=== PATIENT | female | born 1965 | race Caucasian/White ===

== ENCOUNTER 2021-04-23 11:45 | Emergency (ER) | payer OTHER, SELFPAY ==
[2021-04-23 13:05] VITALS: BP 119/80; PULSE 68; RESP 16; TEMP 36.2; O2SAT 99
--- NOTE | 2021-04-23 13:31 | ED.EYEPROB ---
HPI - Eye Problem General Chief complaint: Eye Problems Stated complaint: eye problems Time Seen by Provider: 04/23/21 13:25 History of Present Illness HPI Narrative: Jennifer Weaver is a 55 yo female with PMH of MS and tobacco use comes to [facility] with complaints of left-sided eye discharge . She had discharge that started last night and has been worse today. She had green discharge upon awakening, is somewhat injected and feels irritated. She wears a single contact in her left eye, which she removed Related Data Home Medications Medication Instructions Recorded Confirmed teriflunomide [Aubagio] 14 mg PO DAILY 04/23/21 04/23/21 Allergies Allergy/AdvReac Type Severity Reaction Status Date / Time No Known Allergies Allergy Verified 04/23/21 12:41 Review of Systems Review of Systems: Narrative: CONSTITUTIONAL: Denies fever, chills, sweats. EYES: Denies visual changes, redness, has left eye discharge. ENT: Denies rhinorrhea, congestion, sore throat, otalgia. CARDIOVASCULAR: Denies chest pain, palpitations, edema. RESPIRATORY: Denies dyspnea, wheezing, cough GASTROINTESTINAL: Denies abdominal pain, nausea, vomiting, diarrhea. GENITOURINARY: Denies dysuria, hematuria, abnormal discharge SKIN: Denies rash or itching. NEUROLOGIC: Denies numbness, or focal weakness. PSYCHIATRIC: Denies anxiety or depression. [facility] Past Medical History Medical History Multiple sclerosis Surgical History Surgical History History of delivery History of cholecystectomy History of tonsillectomy and adenoidectomy Family History Family History Mother Carcinoma of colon Alzheimer disease Sibling Malignant neoplasm of prostate Social History Social History Social History: Years smoked: 1 Smoking status: Current every day smoker Tobacco type: cigarettes Second hand tobacco smoke exposure: Yes Alcohol intake: current Drinks per week: 2 Substance use: never Substance use type: does not use Gender identity (if verbalized by the patient): Female Comments At time of signature, I agree with nursing past medical, surgical, social and family history. There is no relevant family history pertinent to the presenting complaint. Exam Narrative: Exam Narrative: GENERAL: This is a well-nourished, well-developed patient, in mild distress. HEAD: normocephalic, atraumatic. EYES: Sclera clear/white on R, mildly injected on left. Vision is grossly intact. EARS: External ears normal,. Hearing grossly intact. NOSE: External nose normal without nasal discharge, nares without redness, no rhinorrhea. THROAT: Mucous membranes moist, NECK: Neck supple, CARDIOVASCULAR: Regular rate and rhythm without murmurs, gallops, or rubs. RESPIRATORY: Clear to auscultation. Breath sounds equal bilaterally. No wheezes, rales, or rhonchi. GASTROINTESTINAL: Abdomen soft, SKIN: warm, intact with no suspicious lesions or rash, good texture and turgor. NEURO: awake, alert, and oriented to person, place and time. There were no obvious focal neurologic abnormalities. Steady gait EXTREMITIES: Normal range of motion. BACK: Nontender without deformity Course Course Emergency Course: Patient comes with discharge and injection of the left eye that started last night, contact into the eye which she does not currently have on Started on Polytrim eye drops every 4 hours x3 days with warm soaks x3 days-she should not wear contacts or make-up to that eye until irritation has cleared Vital Signs Vital signs: Vital Signs Temperature 97.1 F L 04/23/21 13:05 Pulse Rate 68 04/23/21 13:05 Respiratory Rate 16 04/23/21 13:05 Blood Pressure 119/80 04/23/21 13:05 Pulse Oximetry 99 04/23/21 13:05 Temperat
== END 2021-04-23 13:45 | disposition home or self-care (01) ==
PROVIDERS: Emergency Provider Nurse Practitioner; PCP Family Medicine
DX: H10.32 Unspecified acute conjunctivitis, left eye (principal); F17.210 Nicotine dependence, cigarettes, uncomplicated; G35 Multiple sclerosis
CPT/HCPCS: 99213; G0463

== ENCOUNTER 2022-07-20 14:56 | Emergency (ER) | payer OTHER, SELFPAY ==
--- NOTE | ~2022-07-20 | XR_ITS ---
EXAMINATION: XR chest 2V DATE: 07/20/2022 15:38 INDICATION: 3 days of productive cough TECHNIQUE: PA and lateral views of the chest were obtained. COMPARISON: Chest radiograph dated 10/02/2011 FINDINGS: Small bandlike opacity left costophrenic angle consistent with discoid atelectasis/scarring. No other airspace opacities, pulmonary edema, pleural effusion or pneumothorax. The cardiomediastinal silhoue tte is normal. Cholecystectomy clips in the right upper quadrant. Mild thoracolumbar dextrocurvature with mild spondylosis. IMPRESSION: 1. Mild bandlike discoid atelectasis/scarring at the lateral left lung base. Reviewed, dictated and finalized at location A.
[2022-07-20 15:03] VITALS: BP 136/81; PULSE 75; RESP 16; TEMP 37; O2SAT 98
--- NOTE | 2022-07-20 15:22 | ED.GENADULT ---
HPI - General Adult General Chief complaint: Upper Respiratory Infection Stated complaint: cough Time Seen by Provider: 07/20/22 15:23 Source: patient Mode of arrival: ambulatory Limitations: no limitations History of Present Illness HPI narrative: 57-year-old female patient presents to the [facility] with complaints of cough and cold-like symptoms for the past 4 days. Patient does have history of smoking. Patient states she did take a COVID test on Friday as well as another 1 today and were both negative. Patient states she is vaccinated for flu and COVID and supposed to be getting a COVID booster next week. Patient denies any chest pain or shortness of breath but states she has had a cough that has been bothersome. Denies any fevers that she is aware of. Patient states the congestion has subsided. Patient states that she does have history of walking pneumonia . Related Data Home Medications Medication Instructions Recorded Confirmed teriflunomide 14 mg tablet 14 mg PO DAILY 04/23/21 05/13/22 (Aubagio) Allergies Allergy/AdvReac Type Severity Reaction Status Date / Time No Known Allergies Allergy Verified 07/20/22 15:09 Review of Systems Review of Systems: CONSTITUTIONAL: Denies fever, positive chills, denies sweats. EYES: Denies visual changes, redness, or discharge. ENT: Positive rhinorrhea, denies current congestion, sore throat, or otalgia. CARDIOVASCULAR: Denies chest pain, palpitations, or edema. RESPIRATORY: Positive cough denies dyspnea. GASTROINTESTINAL: Denies abdominal pain, nausea, vomiting, or diarrhea. GENITOURINARY: Denies dysuria or hematuria. SKIN: Denies rash or itching. MUSCULOSKELETAL: Denies back pain, joint pain, or myalgia. NEUROLOGIC: Denies headache, numbness, or weakness. PSYCHIATRIC: Denies anxiety or depression. [facility] Past Medical History Medical History Bilateral tinnitus Multiple sclerosis Surgical History Surgical History History of delivery History of cholecystectomy History of tonsillectomy and adenoidectomy Family History Family History Mother Carcinoma of colon Alzheimer disease Sibling Malignant neoplasm of prostate Social History Social History Social History: Years smoked: 1 Smoking status: Current every day smoker Tobacco type: cigarettes Second hand tobacco smoke exposure: Yes Smoking end date: 11/26/21 Alcohol intake: current Drinks per week: 2 Substance use: never Substance use type: does not use Additional living arrangements comments: boyfriend Gender identity (if verbalized by the patient): Female Sexual Orientation (if Verbalized by the Patient): Straight or Heterosexual Comments At the time of my signature I agree with nursing past medical history, surgical, social, and family history. There is no relevant family history pertinent to the presenting complaint. Exam Narrative: GENERAL: Well-appearing, well-nourished, and in no acute distress. HEAD: Normocephalic, atraumatic. EYES: PERRLA and EOMI. ENT: Nares with erythema and edema noted bilaterally, no rhinorrhea or epistaxis. Mucous membranes moist. Posterior pharynx with no erythema, tonsillar lodgment, exudates or lesions present. Bilateral TMs are clear with no erythema or foreign bodies to the canal. NECK: Supple. No lymphadenopathy CHEST: Clear to auscultation. No respiratory distress. Patient does have a mild cough present during exam. HEART: Regular rate and rhythm. No murmur heard. Normal peripheral pulses. ABDOMEN: Soft, nontender, nondistended, normal active bowel sounds. EXTREMITIES: Normal range of motion. No edema. SKIN: Warm, dry, no rash. NEURO: No focal deficits. Alert and oriented x3. Course Course Level
== END 2022-07-20 16:18 | disposition home or self-care (01) ==
PROVIDERS: Emergency Provider Nurse Practitioner Family; PCP Family Medicine
DX: J20.8 Acute bronchitis due to other specified organisms (principal); G35 Multiple sclerosis; F17.210 Nicotine dependence, cigarettes, uncomplicated
CPT/HCPCS: 71046; 99213; G0463

== ENCOUNTER 2022-09-13 00:25 | Day surgery (SDC) | payer OTHER, SELFPAY ==
[2022-09-02 09:51] VITALS: BMI 24.7
--- NOTE | 2022-09-02 09:52 | PC.NURSE ---
Report to the Outpatient Waiting Room, entrance under the green pavilion located off [facility], at time _0800_ on date _[id number]_. Planned Procedure Time: _1000_. Time changes happen often and if your time is changed the preop area will call you the afternoon before. - You and your visitor will be asked to self-screen and do not enter if you have any COVID symptoms. - Only one visitor is requested with a max of two and NO children visitors are allowed at this time. - The patient visitor may be requested to leave or wait in car when not with patient due to distancing restrictions. - A mask is optional within the hospital. Patients may have clear liquids (water, carbonated beverages, clear teas, apple juice) until 3 hours prior to surgery with a maximum of 20 ounces. - No food from midnight until time of surgery Take the following medications with a SIP of water the morning of surgery: ____Aubagio Medications to discontinue per physician Vitamins Date to take last fobk__[id number] Please no make-up, nail portuguese, hairspray, perfume, deodorant, or body powder the day of surgery. No jewelry (including any body piercings) or valuables the day of surgery, leave them at home. Please take a shower or bath the night before, or the morning of, surgery with an antibacterial soap. Wear comfortable, loose fitting clothing. - Jewelry must be removed prior to entering the operating room. Rings and piercings that are not removed may be cut off. - The hospital will not accept responsibility for valuables. - Please leave all valuables, including medications, at home the day of surgery. If you are going home after surgery, a licensed mechanic driver must drive you home. - NO public transportation without another adult if you receive anesthesia. - We recommend that an adult stay with you for 24 hours following discharge. - We also recommend that you do not drive, make important decision, drink alcoholic beverages, or take any drugs that were not prescribed by your health care provider for at least 24 hours after your discharge time. Follow any additional instructions given to you from your surgeon. If you or anyone in your household have experienced Covid symptoms in the past week, please notify your surgeon or the nurse liaison at the phone number below for possible testing. Telephone instructions given to _Patient___and asked if any additional questions and then verbalized understanding. Patient advised to call surgeon office or pre surgery nurse liaison [phone] if any additional questions.
--- NOTE | 2022-09-12 14:41 | WPDANESEPPF ---
Anes - Initial Pre Proc Eval Procedure: Operation Date: 09/13/22 10:00 Proposed Procedures p Craig Bunionectomy Right Foot with Hardware Placement, Emory Osteotomy with Hardware Placement, - Tomás Lea DPM s Arthroplasty Second Digit Right Foot with K-Wire - Tomás Lea DPM Date/Time: 09/12/22 14:41 Surgeon: Tomás Lea DPM Pre Op Diagnosis: hallux valgus, hammer toe right foot Patient Data Age: 57 Gender: F Height: 1.68 m Weight: 69.5 kg Allergies Allergy/AdvReac Type Severity Reaction Status Date / Time No Known Allergies Allergy Verified 09/13/22 08:10 Home Medications Medication Instructions Recorded Confirmed Type teriflunomide 14 mg tablet 14 mg PO DAILY 04/23/21 09/13/22 History (Aubagio) cetirizine 10 mg tablet (Zyrtec) 10 mg PO DAILY #30 tabs 07/20/22 09/13/22 Rx cholecalciferol (vitamin D3) 125 125 mcg PO DAILY 09/02/22 09/13/22 History mcg (5,000 unit) tablet (Vitamin D3) multivitamin 1 tablet PO DAILY 09/02/22 09/13/22 History Patient hx anesthesia problems: none Family hx anesthesia problems: none Results Review: All pre-operative results and documents have been reviewed as part of the pre-operative evaluation. [facility] Past Medical History Medical History Bilateral tinnitus Multiple sclerosis Screening mammogram, encounter for Smoker Surgical History Surgical History History of delivery History of cholecystectomy History of tonsillectomy and adenoidectomy Family History Family History Mother Carcinoma of colon Alzheimer disease Sibling Malignant neoplasm of prostate Social History Social History Social History: Years smoked: 2 Smoking status: Current every day smoker Tobacco type: cigarettes Second hand tobacco smoke exposure: Yes Smoking end date: 11/26/21 Alcohol intake: current Drinks per week: 2 Substance use: never Substance use type: does not use Living arrangements: with family Additional living arrangements comments: boyfriend Gender identity (if verbalized by the patient): Female Sexual Orientation (if Verbalized by the Patient): Straight or Heterosexual Spiritual care concerns: No Anes - Eval Final PreProcedure Day of Procedure 09/12/22 14:41 Patient weight: obese Heart: regular rate and rhythm Lungs: clear to auscultation and normal air movement Airway: Mallampati scale class II Neurological: alert and oriented Last oral intake: >/= 8 hours ASA classification: III Emergent: no Anesthetic plan: proceed Anesthesia type and monitoring: general GIVS and LMA Results Review: All pre-operative results and documents have been reviewed as part of the pre-operative evaluation. Informed Consent: The patient's anesthetic plan and its attendant risks and benefits were discussed with the patient/family/POA. Questions were solicited and answers provided to the satisfaction of the patient/family/POA.
--- NOTE | 2022-09-12 14:42 | WPDANESPNB ---
Anes - Peripheral Nerve Block Date/Time: 09/12/22 14:42 I have discussed with the patient/family/POA the placement of a peripheral nerve block for post-operative pain management, including associated risks, benefits, complications, and side effects. Alternative methods of post-operative analgesia were detailed. Questions were solicited and answers provided to the satisfaction of the patient/family/POA. Time-Out: A pre-procedural Time-Out was completed immediately before starting the procedure and confirmed: Patient Identification, Site, Procedure, Patient Position and the Availability of Requisite Equipment. Clinical Indications: Acute post-operative pain management requested by the operative surgeon. Nerve Block Insertion Note Needle: 22 gauge, stimulating, insulated echogenic needle.
[2022-09-13] VITALS (9 sets, daily range): BP systolic 117–135; BP diastolic 73–84; PULSE 69–88; RESP 10–18; TEMP 36.5–36.6; O2SAT 96–100
[2022-09-13] MEDS: LACTATED RINGERS 1,000 ML 30 ML IV CONT (08:26)
--- NOTE | 2022-09-13 09:48 | WPDHPUPDATE1 ---
History and Physical Update Update Date/Time: 09/13/22 09:48 History and Physical has been reviewed, including an updated exam of the patient. There are NO changes in the patient's condition. Risks, benefits, and alternatives have been discussed and questions answered. Patient agrees to proceed with procedure.
[2022-09-13] MEDS: ceFAZolin 2 GM/D5W 50 ML 2 GM/50 ML BAG IVPB (09:58)
[2022-09-13] MEDS: BUPIVACAINE HCL 0.5% PF 30 ML VIAL INFILTRATE (10:23)
[2022-09-13] MEDS: BACITRACIN ZINC OINTMENT 0.9 GRAM PACKET 1 PACKET TOPICAL (11:02)
--- NOTE | 2022-09-13 11:08 | PM.OP ---
Procedure Note - Brief Procedure Note - Brief Date of procedure: 09/13/22 Pre-op diagnosis: hallux valgus, hammer toe right foot HAV right Hammertoe 2 right Procedure performed: Craig bunionectomy with screw fixation right Arthroplasty with k-wire 2nd right Description of procedure: Under monitored sedation patient was brought into the operating room and placed on the operating table in a supine position. Following general anesthesia the foot was then scrubbed, prepped, and draped in the usual aseptic manner. An Esmark bandage was used to exsanguinate the patient?s right foot and the ankle tourniquet was inflated. Attention was then directed to the dorsal aspect of the 1 st metatarsophalangeal joint where linear incision was made medial to the extensor tendon. It was deepened down to the level of the bone using sharp and blunt dissection with care being taken to identify and retract all vital and neurovascular structures. A linear capsulotomy was made and the head of the metatarsal was exposed to the operative field. The medial eminence was resected. The first interspace was accessed and the adductor hallucis tendon was transected. The fibular sesamoid was freed of all of its soft tissue attachments. A v-type osteotomy was made. The head was moved laterally and fixated in place with 1 3.0 Asnis screw. At this point the toe was noted to be straight and the decision was made to not perform the Emory procedure. All remaining bone eminences were removed with a bone saw and all rough edges were smoothed. The wound was flushed with copious amounts of sterile normal saline and the deep tissue was repaired using 3-0 vicryl, skin was repaired using 5-0 vicryl. Next a linear incision made dorsal to the PIPJ of the 2nd digit. It was deepened down to the level of the PIPJ. Using sharp and blunt dissection a transverse tenotomy was performed at the joint. The joint was reduced into proper position. The joint was then fixated in place using 1, .045 inch K-wire. The wounds were then injected with 0.5% marcaine plain The wounds were then covered with a dry, sterile compressive dressing consisting of Steristrips, antibiotic ointment, Adaptic, 4 x 4?s, Newton and Cobelyse. The ankle tourniquet was deflated and prompt capillary refill response noted to all digits of the right foot. Patient tolerated procedure and anesthesia well. He was transferred to the recovery room with vital signs stable and neurovascular status intact to all digits of the right foot. Following a period of post-operative monitoring the patient will be discharged home with written and oral post-operative instructions.. Implants: 3.0 Shai Asnis screw 0.045 K-wire Surgeon: Tomás Lea DPM Procurement Accountant: none Estimated blood loss (mL): 1 Packing: No Pathology: None sent Complications: No immediate complications Disposition: PACU
== END 2022-09-13 13:38 | disposition home or self-care (01) ==
PROVIDERS: PCP Family Medicine; Visit Provider Podiatrist Foot & Ankle Surgery
PROC: (CPT 28299; principal; 2022-09-13 10:00)
PROC: (CPT 28285; 2022-09-13 10:00)
DX: M20.11 Hallux valgus (acquired), right foot (principal); M20.41 Other hammer toe(s) (acquired), right foot; G35 Multiple sclerosis; F17.210 Nicotine dependence, cigarettes, uncomplicated
CPT/HCPCS: 28285; 28298; A9270; C1713; J0690; J1100; J1885; J2250; J2405; J2704; J3010; J7120

== ENCOUNTER 2024-11-15 01:07 | Day surgery (SDC) | payer OTHER, SELFPAY ==
[2024-10-29 08:35] VITALS: BMI 24.9
--- OUTSIDE RECORDS SUMMARY | 2024-11-15 01:10 | XMS_ITS | Referral Summary ---
Author Organization [facility] Address [address] [place] [address] Care Team Providers Care Front End Developer Name Role Phone Mark Alcantara MD Primary Care Provider [phone] Source Comments [facility], formerly [facility],non-owned Affiliates and Associated Physician Practices is amultiple site organization consisting of ambulatory clinics and hospital sitesin [place], [place], [place] and [place]. This disclosure is being madepursuant to the Care Everywhere program and may not contain all information available regarding this patient. Last updated 18.[facility] Allergies No known active allergies Medications * Be aware that medications may not be up to date on this document. Alwaysverify current medications with the patient. Medication Sig Dispensed Refills Start Date End Date Status vitamin D3 (CHOLECACIFEROL) 5000 UNITS Active Cyanocobalamin (VITAMIN B-12 PO) Take 1 tablet by mouth once daily Active sertraline (Zoloft) 25 MG tablet Take 1 (one) tablet by mouth once daily 06/04/2022 Active Teriflunomide 14 MGIndications:MS (multiple sclerosis) (HCC) Take 1 (one) tablet by mouth once daily 30 tablet 11 02/13/2024 Active Active Problems Problem Noted Date Diagnosed Date Vitamin D deficiency 12/29/2013 Glaucoma suspect 11/18/2013 Numbness and tingling of left leg 05/05/2013 MS (multiple sclerosis) 07/01/2010 Immunizations Name Administration Dates Next Due INFLUENZA VACCINE 07/05/2019,07/07/2018 Social History Tobacco Use Types Packs/Day Years Used Date Smoking Tobacco: Never Smokeless Tobacco: Never Tobacco Cessation:Counseling Given: Not Answered Alcohol Use Standard Drinks/Week Comments Yes 0 (1 standard drink = 0.6 oz pur e alcohol) socially Sex and Gender Information Value Date Recorded Sex Assigned at Not on file Gender Identity Not on file Sexual Orientation Not on file Last Filed Vital Signs Vital Sign Reading Time Taken Comments Blood Pressure 126/85 09/04/2023 2:47 PM [employer] Pulse 84 09/04/2023 2:47 PM [employer] Temperature 36.6 C (97.8 F) 09/04/2023 2:47 PM [employer]OM[employer]ENT Respiratory Rate 16 11/04/2016 2:55 PM [employer]OM[employer]ENT Oxygen Saturation 96% 09/04/2023 2:47 PM [employer]OM[employer]ENT[employer]ENT Inhaled Oxygen Concentration - - Weight 67.1 kg (148 lb) 09/04/2023 2:47 PM [employer]ENT[employer] Height 167.6 cm (5' 6 ) 09/04/2023 2:47 PM [employer]OMO[employer]LE [employer]ENTAL [employer]ENT Body Mass Index 23.89 09/04/2023 2:47 PM [employer]OM[employer] Plan of Treatment Not on file Procedures Procedure Name Priority Date/Time Associated Diagnosis Comments HEPATITIS C ANTIBODY Routine 06/30/2013 10:24 AM CDT from Last 3 Months or Most Recently Relevant to Health Maintenance Results * HEPATITIS C ANTIBODY (06/30/2013 10:24 AM CDT) Hepatitis C Antibody NON-REACTI VE NON-REACT [facility]) Signal/Cutoff 0.03 <1.00 [facility]) Comment: Test Performed at: [employer] [facility] [address] [place] [address] LINDSEY DRAKE DO,MPH 06/30/2013 10:2 4 AM CDT 06/30/2013 10:25 AM CDT Historical Provider LAB - CHEMISTRY O RDERABLES [facility]) from Last 3 Months or Most Recently Relevant to Health Maintenance Care Teams Front End Developer Relationship Specialty Start Date End Date Mark Alcantara MD [address] [place], [place] [id number] PCP - General 11/19/21
--- OUTSIDE RECORDS SUMMARY | 2024-11-15 01:10 | XMS_ITS | Patient Health Record ---
Author Organization [facility] Address [address] [place], [place] [id number] Care Team Providers Care Shim Plug Cutter Name Role Phone PITA FLORES Unavailable [phone] Mark Alcantara Unavailable Unavailable Reason For Referral No Information Plan Of Treatment No Information Insurance Providers Payer Name Payer Address Payer Phone Subscriber Number Group Number Insured Name Patient Relationship to Insured Coverage Start Date Coverage End Date [employer] PPO [address] [place], [place] [id number] I [place] SAN[place] Self - patient is the insured
--- OUTSIDE RECORDS SUMMARY | 2024-11-15 01:10 | XMS_ITS | Clinical Summary ---
Author Organization [facility] Address [address] [place] [address] Care Team Providers Care Collections Director Name Role Phone Mark Alcantara MD Primary Care Provider Allergies No known active allergies Medications cholecalciferol (VITAMIN D-3) 5,000 unit tablet Take 1 tablet (5,000 Units total) by mouth daily Active TESTOSTERONE, BULK, MISC Active progesterone (PROMETRIUM) 200 mg capsule Take 300 mg by mouth daily Active gabapentin (NEURONTIN) 300 mg capsuleIndicati ons:Sciatica Take one tablet as needed for left lower extremity tingling 30 capsule 2 4 Active teriflunomide 14 mg tablet Take 1 tablet (14 mg total) by mouth daily 90 tablet 3 4 Active Active Problems Problem Noted Date Diagnosed Date Multiple sclerosis 06/09/2024 Assessment & Plan (06/09/2024 8:14 PM CDT): Patient is presenting to [facility] for her multiple sclerosis. She had initial symptom onset in 1998 and was diagnosed during this time following MR imaging and CSF testing. Shortly thereafter she was started on Avonex and then switched to Betaseron, Gilenya, Aubagio, and within the last year generic Teriflunomide. She denies any ongoing symptoms attributable to her multiple sclerosis. Her most recent brain MRI from 2020 showed no evidence of radiographic disease activity. She continues to take vitamin-D 5000 units daily supplement. Recommend continuing Aubagio. We will repeat her brain MRI for further monitoring for ongoing disease activity. We will check blood work to monitor for side effects from Aubagio. Sciatica of left side 06/09/2024 Assessment & Plan (06/09/2024 11:47 AM CDT): Patient with ongoing symptoms of sciatica in her left lower extremity that started in the context of weight lifting. It has been present for roughly 4 weeks and she describes it as an intermittent tingling sensation extending from her left buttocks down to her left foot and calf. It improves with activity. We will provide the patient with a prescription for physical therapy for further treatment. We will also prescribe the patient with a prescription for gabapentin 300 mg to take as needed to help with the tingling sensation. Meningioma 06/09/2024 Assessment & Plan (06/09/2024 11:48 AM CDT): Patient with left frontal meningioma identified incidentally on her brain MR imaging. The meningioma has been stable over time and is unlikely contributing to ongoing symptoms. She also has an incidentally identified osseous bone lesion in her occipital bone. This has also remained largely stable over time. Follow up with a brain MRI for further evaluation. Surgical History Surgery Date Site/Laterality Comments SECTION 1988, 1992 CHOLECYSTECTOMY 2004 Medical History Medical History Date Comments Autoimmune disease (CMS/HCC) ([facility]) December 1998 Multiple sclerosis (HCC) 06/09/2024 Sciatica of left side 06/09/2024 Meningioma (HCC) 06/09/2024 Family History Medical History Relation Name Comments Cancer Brother Pérez Solano Miscarriages / Stillbirths Daughter Janice Ortiz Alzheimer's disease Mother Cristal Moreno Cancer Mother Cristal Moreno Relation Name Status Comments Brother Pérez Solano Daughter Janice Ortiz Mother Cristal Moreno Social History Tobacco Use Types Packs/Day Years Used Date Smoking Tobacco: Former Cigarettes 0.3 3 0 12/27/2019 - 01/22/2023 Tobacco Cessation:Counseling Given: Not Answered Comments No Sex and Gender Information Value Date Recorded Sex Assigned at Not on file Legal 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 Gender Identity Not on file Sexual Orientation Not on file Obstetrics History Last Filed Vital Signs Vital Sign Reading Time Taken Comments Blood Pressure 108/76 06/09/2024 10:43 AM CDT Pulse 75 06/09/2024 10:43 AM CDT Temperature 36.2 C (97.2 F) 06/09/2024 10:43 AM CDT Respiratory Rate - - Oxygen Saturation 95% 06/09/2024 10:43 AM CDT Inhaled Oxygen Concentration - - Weight 72.2 kg (159 lb 3.2 oz) 06/09/2024 10:43 AM CDT Height 167.6 cm (5' 6 ) 06/09/2024 10:43 AM CDT Body Mass Index 25.7 06/09/2024 10:43 AM CDT Plan of Treatment Health Maintenance Due Date Last Done Comments Breast Cancer Screening-Mammogram 1963 Cervical Cancer Screening 1963 Colon Cancer Screening-Colonoscopy 1963 Depression Screening 1963 Hepatitis C Screening 1963 DTaP/Tdap/Td Vaccine (1 - Tdap) 1974 Hepatitis B Screening 1981 Regular Well Visit/Exam 18-64 1981 Covid-19 Vaccine ( season) 2024 01/01/2021, 12/11/2020 Influenza Vaccine (#1) 2024 , 06/03/2020, 07/15/2019, Additional history exists Pneumococcal vaccine <65 Aged Out 07/13/2013 No longer eligible based on patient's age to complete this topic Zoster Vaccine Completed 06/28/2021, 10/05/2020 [place] [address] [facility] [id number] [employer] [place] [id number] [employer] Care Teams Collections Director Relationship Specialty Start Date End Date Mark Alcantara MD [address] [facility] [address] [place] [address] PCP - General Family Medicine 02/14/22
--- OUTSIDE RECORDS SUMMARY | 2024-11-15 01:10 | XMS_ITS | Patient Health Summary ---
Author Organization [facility] Address [address] [place] [address] Care Team Providers Care Delivery Person Name Role Phone Mark Alcantara MD Primary Care Provider [phone] Note from [facility],non-owned Affiliates and Associated Physician Practices is amultiple site organization consisting of ambulatory clinics and hospital sitesin [place], [place], [place] and [place]. This disclosure is being madepursuant to the Care Everywhere program and may not contain all information available regarding this patient. Last updated 18.[facility] Allergies No known active allergies Medications * Be aware that medications may not be up to date on this document. Alwaysverify current medications with the patient. * vitamin D3 (CHOLECACIFEROL) 5000 UNITS * Cyanocobalamin (VITAMIN B-12 PO) Take 1 tablet by mouth once daily * sertraline (Zoloft) 25 MG tablet(Started 06/04/2022) Take 1 (one) tablet by mouth once daily * Teriflunomide 14 MG(Started 02/13/2024) Take 1 (one) tablet by mouth once daily 11 refills by 02/12/2025 Active Problems Problem Noted Date Diagnosed Date Vitamin D deficiency 12/29/2013 Glaucoma suspect 11/18/2013 Numbness and tingling of left leg 05/05/2013 MS (multiple sclerosis) 07/01/2010 Immunizations * INFLUENZA VACCINE(Given 07/05/2019, 07/07/2018) Social History Tobacco Use Types Packs/Day Years [...] Comments Blood Pressure 126/85 09/04/2023 2:47 PM ROLLER PAINTER Pulse 84 09/04/2023 2:47 PM ROLLER PAINTER Temperature 36.6 C (97.8 F) 09/04/2023 2:47 PM ROLLER PAINTER Respiratory Rate 16 11/04/2016 2:55 PM ROLLER PAINTER Oxygen Saturation 96% 09/04/2023 2:47 PM ROLLER PAINTER Inhaled Oxygen Concentration - - Weight 67.1 kg (148 lb) 09/04/2023 2:47 PM ROLLER PAINTER Height 167.6 cm (5' 6 ) 09/04/2023 2:47 PM ROLLER PAINTER Body Mass Index 23.89 09/04/2023 2:47 PM ROLLER PAINTER Procedures * CBC W AUTO DIFFERENTIAL(Performed 11/22/2023) * COMPREHENSIVE METABOLIC PANEL(Performed 11/22/2023) * CBC W AUTO DIFFERENTIAL(Performed 02/22/2022) * COMPREHENSIVE METABOLIC PANEL(Performed 02/22/2022) * CBC W AUTO DIFFERENTIAL(Performed 01/13/2021) * COMPREHENSIVE METABOLIC PANEL(Performed 01/13/2021) * MRI CERVICAL SPINE WWO CONT(Performed 12/09/2020) Performed for Multiple sclerosis (HCC) * MRI BRAIN WWO CONTRAST(Performed 12/09/2020) Performed for Multiple sclerosis (HCC) * CREATININE - POCT INTERFACED(Performed 12/09/2020) * LAB RESULTS ORDER(Performed 06/06/2020) * CBC W AUTO DIFFERENTIAL(Performed 06/03/2020) * VITAMIN D 25-HYDROXY(Performed 07/17/2019) * TSH(Performed 07/17/2019) * CBC W AUTO DIFFERENTIAL(Performed 07/17/2019) * COMPREHENSIVE METABOLIC PANEL(Performed 07/17/2019) * LAB RESULTS ORDER(Performed 04/12/2019) * VITAMIN D 25-HYDROXY(Performed 04/09/2019) * TSH(Performed 04/09/2019) * CBC W AUTO DIFFERENTIAL(Performed 04/09/2019) * COMPREHENSIVE METABOLIC PANEL(Performed 01/15/2019) Performed for MS (multiple sclerosis) (HCC) * CBC W AUTO DIFFERENTIAL(Performed 01/15/2019) Performed for MS (multiple sclerosis) (HCC) * LAB RESULTS ORDER(Performed 10/23/2018) * COMPREHENSIVE METABOLIC PANEL(Performed 10/16/2018) Performed for MS (multiple sclerosis) (HCC) * CBC W AUTO DIFFERENTIAL(Performed 10/16/2018) Performed for MS (multiple sclerosis) (HCC) * MRI CERVICAL SPINE WWO CONT(Performed 09/26/2018) Performed for MS (multiple sclerosis) (HCC) * MRI THORACIC SPINE WWO CONT(Performed 09/26/2018) Performed for MS (multiple sclerosis) (HCC) * MRI BRAIN WWO CONTRAST(Performed 09/26/2018) Performed for MS (multiple sclerosis) (HCC) * CREATININE BLOOD - POCT (IP) [facility](Performed 09/26/2018) Performed for MS (multiple sclerosis) (HCC) * LAB RESULTS ORDER(Performed 07/20/2018) * COMPREHENSIVE METABOLIC PANEL(Performed 07/17/2018) Performed for MS (multiple sclerosis) (HCC) * CBC W AUTO DIFFERENTIAL(Performed 07/17/2018) Performed for MS (multiple sclerosis) (HCC) * LAB RESULTS ORDER(Performed 02/10/2018) * LAB RESULTS ORDER(Performed 02/06/2018) * LAB RESULTS ORDER(Performed 02/04/2018) * TSH(Performed 10/17/2017) * COMPREHENSIVE METABOLIC PANEL(Performed 10/17/2017) * CBC W AUTO DIFFERENTIAL(Performed 10/17/2017) * HEPATIC FUNCTION PANEL(Performed 06/27/2017) * CBC W AUTO DIFFERENTIAL(Performed 06/27/2017) * CBC W AUTO DIFFERENTIAL(Performed 03/27/2017) * HEPATIC FUNCTION PANEL(Performed 03/27/2017) * VITAMIN D 25-HYDROXY(Performed 03/27/2017) * CBC W AUTO DIFFERENTIAL(Performed 12/02/2016) * HEPATIC FUNCTION PANEL(Performed 12/02/2016) * MRI BRAIN WWO CONTRAST(Performed 08/16/2016) * MRI CERVICAL SPINE WWO CONT(Performed 08/16/2016) * MRI THORACIC SPINE WWO CONT(Performed 08/16/2016) * BASIC METABOLIC PANEL (CALCIUM TOTAL)(Performed 08/02/2016) * CBC W AUTO DIFFERENTIAL(Performed 08/02/2016) * HEPATIC FUNCTION PANEL(Performed 08/02/2016) * COMPREHENSIVE METABOLIC PANEL(Performed 04/26/2016) * TSH(Performed 04/26/2016) * CBC W AUTO DIFFERENTIAL(Performed 04/26/2016) * COMPREHENSIVE METABOLIC PANEL(Performed 03/01/2016) * CBC W AUTO DIFFERENTIAL(Performed 03/01/2016) * CBC W AUTO DIFFERENTIAL(Performed 03/01/2016) * COMPREHENSIVE METABOLIC PANEL(Performed 02/03/2016) * CBC W AUTO DIFFERENTIAL(Performed 02/03/2016) * CBC W AUTO DIFFERENTIAL(Performed 02/03/2016) * QUANTIFERON TB-GOLD (CLIENT INCUBATED)(Performed 12/28/2015) * VITAMIN D 25-HYDROXY(Performed 12/28/2015) * COMPREHENSIVE METABOLIC PANEL(Performed 12/28/2015) * CBC W AUTO DIFFERENTIAL(Performed 12/28/2015) * CBC W AUTO DIFFERENTIAL(Performed 12/28/2015) * HEPATIC FUNCTION PANEL(Performed 11/17/2015) * CBC W AUTO DIFFERENTIAL(Performed 11/17/2015) * VITAMIN D 25-HYDROXY(Performed 05/10/2015) * FOLATE(Performed 05/10/2015) * VITAMIN B12(Performed 05/10/2015) * COMPREHENSIVE METABOLIC PANEL(Performed 05/10/2015) * CBC W AUTO DIFFERENTIAL(Performed 05/10/2015) * CBC W AUTO DIFFERENTIAL(Performed 05/10/2015) * MRI BRAIN WWO CONTRAST(Performed 11/02/2014) * CREATININE BLOOD - POCT (IP) [facility](Performed 11/02/2014) * VITAMIN D 25-HYDROXY D2+D3(Performed 05/18/2014) * CBC W AUTO DIFFERENTIAL(Performed 05/18/2014) * TSH(Performed 05/18/2014) * T4 FREE(Performed 05/18/2014) * PT-INR [facility](Performed 05/18/2014) * PTT [facility](Performed 05/18/2014) * COMPREHENSIVE METABOLIC PANEL(Performed 05/18/2014) * URINALYSIS W/MICROSCOPIC NO CULTURE(Performed 05/18/2014) * MRI BRAIN WWO CONTRAST(Performed 05/04/2014) * VITAMIN D 25-HYDROXY D2+D3(Performed 03/15/2014) * VITAMIN D 25-HYDROXY(Performed 11/24/2013) * MRI BRAIN WWO CONTRAST(Performed 11/16/2013) * CREATININE BLOOD - POCT (IP) [facility](Performed 11/16/2013) * QUANTIFERON TB-GOLD(Performed 08/11/2013) * QUANTIFERON TB-GOLD(Performed 07/07/2013) * INTERFERON BETA NEUTRALIZING ANTIBODY(Performed 06/30/2013) * VITAMIN B12(Performed 06/30/2013) * TSH(Performed 06/30/2013) * FOLATE(Performed 06/30/2013) * CBC W AUTO DIFFERENTIAL(Performed 06/30/2013) * COMPREHENSIVE METABOLIC PANEL(Performed 06/30/2013) * HEPATITIS C ANTIBODY(Performed 06/30/2013) * VARICELLA ZOSTER ANTIBODY IGG(Performed 06/30/2013) * TOMI SCREEN IFA+LUPUS PANEL(Performed 06/30/2013) * VITAMIN D 25-HYDROXY D2+D3(Performed 06/30/2013) * STRATIFY JCV AB RFLX TO INHIBITION ASSAY(Performed 06/30/2013) * NEUROMYELITIS OPTICA ANTIBODY(Performed 06/30/2013) * RPR W REFLEX CONFIRM(Performed 06/30/2013) Results * CBC WITH DIFFERENTIAL (11/22/2023 9:28 AM ROLLER PAINTER) Only the most recent of26 resultswithin the time period is included. White Blood Cell Count 5.0 3.8 - 10.8 Thousand/u L [facility] RBC 4.22 3.80 - 5.10 Million/uL [facility] Hemoglobin 13.5 11.7 - 15.5 g/dL [facility] Hematocrit 39.8 35.0 - 45.0 % [facility] MCV 94.3 80.0 - 100.0 fL [facility] MCH 32.0 27.0 - 33.0 pg [facility] MCHC 33.9 32.0 - 36.0 g/dL [facility] RDW 12.6 11.0 - 15.0 % [facility] Platelet Count 252 140 - 400 Thousand/u L [facility] MPV 10.7 7.5 - 12.5 fL [facility] Neutrophil Absolute 2985 1500 - 7800 cells/uL [facility] Lymphocytes Absolute 1400 850 - 3900 cells/uL [facility] Absolute Monocytes 395 200 - 950 cells/uL [facility] Eosinophils Absolute 120 15 - 500 cells/uL [facility] Basophils Absolute 100 0 - 200 cells/uL [facility] Granulocytes % 59.7 % [facility] Lymphocytes % 28.0 % [facility] Monocytes % 7.9 % [facility] Eosinophils % 2.4 % [facility] Basophils % 2.0 % [facility] Comment: REPORT COMMENT: FASTING:NO Test Performed at: [facility] [place] [address] ZOILA ROBERTS MD 11/22/2023 9:28 AM ROLLER PAINTER 11/22/2023 9:30 AM ROLLER PAINTER Naheed Webb MD LAB - HEMATOLOG Y ORDERABLES [facility] [address] [place] [address] * COMPREHENSIVE METABOLIC PANEL (11/22/2023 9:28 AM ROLLER PAINTER) Only the most recent of15 resultswithin the time period is included. Glucose 87 65 - 139 mg/dL [facility] Comment: Non-fasting reference interval BUN 11 7 - 25 mg/dL [facility] Creatinine 0.95 0.50 - 1.05 mg/dL [facility] eGFR by Cystatin C 69 > OR = 60 mL/min/1. 73m2 [facility] BUN/Creatinine Ratio SEE NOTE: 6 - 22 (calc) [facility] Comment: Not Reported: BUN and Creatinine are within reference range. Sodium 141 135 - 146 mmol/L [facility] Potassium 4.1 3.5 - 5.3 mmol/L [facility] Chloride 108 98 - 110 mmol/L [facility] CO2 25 20 - 32 mmol/L [facility] Calcium 9.7 8.6 - 10.4 mg/dL [facility] Protein Total 6.2 6.1 - 8.1 g/dL [facility] Albumin 4.3 3.6 - 5.1 g/dL [facility] Globulin Total 1.9 1.9 - 3.7 g/dL (calc) [facility] Albumin/Globulin Ratio 2.3 1.0 - 2.5 (calc) [facility] Bilirubin Total 0.5 0.2 - 1.2 mg/dL [facility] Alkaline Phosphatase 64 37 - 153 U/L [facility] AST 21 10 - 35 U/L [facility] ALT 23 6 - 29 U/L [facility] Comment: Test Performed at: [facility] [place] [address] ZOILA ROBERTS MD 11/22/2023 9:28 AM ROLLER PAINTER 11/22/2023 9:30 AM ROLLER PAINTER Naheed Webb MD LAB - CHEMISTRY ORDERABLES [facility] [address] [place] [address] * MRI CERVICAL SPINE WWO CONT (12/09/2020 2:58 PM ROLLER PAINTER) Only the most recent of3 resultswithin the time period is included. Anatomical Region Laterality Modality Spine Magnetic Resonan ce 12/11/2020 8:12 AM CDT Impressions 12/11/2020 11:41 AM CDT IMPRESSION: 1. No significant interval changes in size or morphology of the supratentorial and cord demyelinating plaques are identified. A new demyelinating plaque is not evident. No evidence of corresponding enhancement or restricted diffusion to suggest active disease. There has been no interval brain atrophy. The optic nerve and optic chiasm are normal. 2. Stable 5 mm dural-based right frontal meningioma. 3. A 1.6 x 0.9 cm occipital osseous lesion in midline is slightly larger than the prior study. Further evaluation using a CT head for better evaluation of bony structures is recommended. 4. The degenerative disc and joint disease has progressed since 09/26/2018 with effacement of ventral subarachnoid space at the C3-C4 through the C6-C7 levels mainly by the posterior disc-osteophyte complexes. However, there is no cord compression or spinal stenosis as a result. I, Dr. ABDULLAHI BAUGH have personally reviewed and interpreted this examination/study. This report was electronically signed by ABDULLAHI BAUGH on 12/11/2020 11:41 AM . Narrative 12/11/2020 11:41 AM CDT EXAMINATIONS: 1. MRI BRAIN WITHOUT AND WITH CONTRAST 2. MRI CERVICAL SPINE WITHOUT AND WITH CONTRAST HISTORY: G35: 55-year-old female presenting for multiple sclerosis follow-up. TECHNIQUE: MRI of the brain and cervical spine was performed prior to and following the uneventful administration of 7.5 mL Gadavist contrast according to a demyelination protocol of the brain and a standard protocol of the cervical spine. COMPARISON: MRI brain and cervical spine 09/26/2018. FINDINGS: BRAIN: No significant interval change is evident regarding the size, shape and number of the multiple small periventricular and subcortical T2/FLAIR hyperintense white matter lesions. No corresponding enhancement or restricted diffusion to suggest active disease is identified. There are stable number of the lesions demonstrating T1 hypointensity, consistent with myelin vacuolization. There is a stable 5 mm dural based right frontal lobe avidly enhancing meningioma (series 16 image 114). No other enhancing lesion is identified. No evidence of acute or chronic hemorrhage is identified. No evidence of acute cerebral infarction or interval infarction is seen. The brain volume is stable without interval atrophy. The ventricles are of normal size, shape, and morphology. No mass, edema, mass effect or midline shift is seen. No other white matter changes are visible. The corpus callosum and sella appear normal. In particular, no callosal or callososeptal demyelinating plaques are present. The posterior fossa and brainstem appear normal. The optic nerves in orbital and prechiasmatic region as well as optic chiasm are normal in size and morphology and there is no associated abnormal enhancement on axial T1 3-D MPRAGE sequence. Mild mucosal thickening of the bilateral ethmoidal air cells anteriorly is in physiologic range. The paranasal sinuses and mastoid air cells are clear. Normal flow voids are demonstrated in the carotid arteries and basilar artery. There is a slightly enlarging 1.6 x 0.9 cm T2 hyperintense lesion which demonstrates enhancement in the midline occipital bone, previously measuring 1.3 x 0.8 cm. CERVICAL SPINE: The small T2 hyperintense focus in the left posterolateral aspect of the spinal cord opposite C3-4 (series 6 image 18) is unchanged and does not enhance. This is not well-seen on the sagittal images. No other focal intramedullary T2 hyperintensity in the cord to indicate a demyelinating plaque is identified. The cord is normal in size and contour and it is not compressed. Alignment is stable and normal. Vertebral bodies are normal in height without evidence of compression fractures. Fat containing osseous hemangiomata of T2 and T3 are stable. The craniocervical junction appears normal. No soft tissue abnormality is identified. Normal flow voids are identified in the vertebral arteries. The moderate degenerative disc disease at the C3-C4 through the C6-C7 levels with associated desiccation of the discs, shortening of disc space heights and endplate osteophytosis has minimally progressed in the interval. Broad-based posterior disc-osteophyte complexes at all of these levels have mildly enlarged in the interval and there is interval formation of an additional superimposed posterior disc protrusion at C4-C5. The ventral subarachnoid space is effaced as a result at these levels, but there is no spinal stenosis. The disc-osteophyte complex at C6-C7 barely abuts the cord without flattening the cord. Moderate to severe uncovertebral joint osteoarthritis at the C3-C4 through the C6-C7 levels is associated with formation of posterior bony spurs from the joints which in association with mild to moderate bilateral facet osteoarthritis at these levels results in moderate to severe bilateral neural foraminal stenosis at C4-C5 and [id number] neural foraminal stenosis of the other levels in this segment. No visible impingement on the exiting nerves in the stenotic neural foramina is identified on axial MRI images Procedure Note Abdullahi Baugh MD - 12/11/2020 EXAMINATIONS: 1. MRI BRAIN WITHOUT AND WITH CONTRAST 2. MRI CERVICAL SPINE WITHOUT AND WITH CONTRAST HISTORY: G35: 55-year-old female presenting for multiple sclerosis follow-up. TECHNIQUE: MRI of the brain and cervical spine was performed prior toand following the uneventful administration of 7.5 mL Gadavist contrast according to a demyelination protocol of the brain and a standardprotocol of the cervical spine. COMPARISON: MRI brain and cervical spine 09/26/2018. FINDINGS: BRAIN: No significant interval change is evident regarding the size, shape and number of the multiple small periventricular and subcortical T2/FLAIR hyperintense white matter lesions. No corresponding enhancement or restricted diffusion to suggest active disease is identified. There are stable number of the lesions demonstrating T1 hypointensity, consistent with myelin vacuolization. There is a stable 5 mm dural based right frontal lobe avidly enhancing meningioma (series 16 image 114). No other enhancing lesion isidentified. No evidence of acute or chronic hemorrhage is identified. No evidence of acute cerebral infarction or interval infarction is seen. The brainvolume is stable without interval atrophy. The ventricles are of normal size, shape, and morphology. No mass, edema, mass effect or midline shift is seen. No other white matter changes are visible. The corpus callosum and sella appear normal. In particular, no callosal or callososeptal demyelinating plaques are present. The posterior fossa and brainstem appear normal. The optic nerves in orbital and prechiasmatic region as well as optic chiasm are normal in size and morphology and there is no associated abnormal enhancement on axial T1 3-D MPRAGE sequence. Mild mucosal thickening of the bilateral ethmoidal air cells anteriorlyis in physiologic range. The paranasal sinuses and mastoid air cells are clear. Normal flow voids are demonstrated in the carotid arteries and basilar artery. There is a slightly enlarging 1.6 x 0.9 cm T2 hyperintense lesion which demonstrates enhancement in the midline occipital bone, previously measuring 1.3 x 0.8 cm. CERVICAL SPINE: The small T2 hyperintense focus in the left posterolateral aspect of the spinal cord opposite C3-4 (series 6 image 18) is unchanged and does not enhance. This is not well-seen on the sagittal images. No other focal intramedullary T2 hyperintensity in the cord to indicate a demyelinating plaque is identified. The cord is normal in size and contour and it isnot compressed. Alignment is stable and normal. Vertebral bodies are normal in height without evidence of compression fractures. Fat containing osseous hemangiomata of T2 and T3 are stable. The craniocervical junctionappears normal. No soft tissue abnormality is identified. Normal flow voids are identified in the vertebral arteries. The moderate degenerative disc disease at the C3-C4 through the C6-C7 levels with associated desiccation of the discs, shortening of discspace heights and endplate osteophytosis has minimally progressed in the interval. Broad-based posterior disc-osteophyte complexes at all ofthese levels have mildly enlarged in the interval and there is interval formation of an additional superimposed posterior disc protrusion at C4-C5. The ventral subarachnoid space is effaced as a result at these levels, but there is no spinal stenosis. The disc-osteophyte complex at C6-C7 barely abuts the cord without flattening the cord. Moderate to severe uncovertebral joint osteoarthritis at the [id number] the C6-C7 levels is associated with formation of posterior bony spursfrom the joints which in association with mild to moderate bilateral facet osteoarthritis at these levels results in moderate to severe bilateral neural foraminal stenosis at C4-C5 and [id number] neural foraminal stenosis of the other levels in this segment. No visible impingement on the exiting nerves in the stenotic neural foramina is identified onaxial MRI images IMPRESSION: 1. No significant interval changes in size or morphology of the supratentorial and cord demyelinating plaques are identified. A new demyelinating plaque is not evident. No evidence of corresponding enhancement or restricted diffusion to suggest active disease. There has been no interval brain atrophy. The optic nerve and optic chiasm are normal. 2. Stable 5 mm dural-based right frontal meningioma. 3. A 1.6 x 0.9 cm occipital osseous lesion in midline is slightly larger than the prior study. Further evaluation using a CT head for better evaluation of bony structures is recommended. 4. The degenerative disc and joint disease has progressed since09/26/2018 with effacement of ventral subarachnoid space at the C3-C4 through the C6-C7 levels mainly by the posterior disc-osteophyte complexes. However, there is no cord compression or spinal stenosis as a result. Dr. ABDULLAHI Issa have personally reviewed and interpreted this examination/study. This report was electronically signed by ABDULLAHI BAUGH on 111:41 AM . Noe Valdes MD MR ORDERABLES * MRI BRAIN WWO CONTRAST (12/09/2020 2:56 PM ROLLER PAINTER) Only the most recent of6 resultswithin the time period is included. Anatomical Region Laterality Modality Head Magnetic Resonan ce 12/11/2020 8:12 AM CDT Impressions 12/11/2020 11:41 AM CDT IMPRESSION: 1. No significant interval changes in size or morphology of the supratentorial and cord demyelinating plaques are identified. A new demyelinating plaque is not evident. No evidence of corresponding enhancement or restricted diffusion to suggest active disease. There has been no interval brain atrophy. The optic nerve and optic chiasm are normal. 2. Stable 5 mm dural-based right frontal meningioma. 3. A 1.6 x 0.9 cm occipital osseous lesion in midline is slightly larger than the prior study. Further evaluation using a CT head for better evaluation of bony structures is recommended. 4. The degenerative disc and joint disease has progressed since 09/26/2018 with effacement of ventral subarachnoid space at the C3-C4 through the C6-C7 levels mainly by the posterior disc-osteophyte complexes. However, there is no cord compression or spinal stenosis as a result. Dr. ABDULLAHI Issa have personally reviewed and interpreted this examination/study. This report was electronically signed by ABDULLAHI BAUGH on 12/11/2020 11:41 AM . Narrative 12/11/2020 11:41 AM CDT EXAMINATIONS: 1. MRI BRAIN WITHOUT AND WITH CONTRAST 2. MRI CERVICAL SPINE WITHOUT AND WITH CONTRAST HISTORY: G35: 55-year-old female presenting for multiple sclerosis follow-up. TECHNIQUE: MRI of the brain and cervical spine was performed prior to and following the uneventful administration of 7.5 mL Gadavist contrast according to a demyelination protocol of the brain and a standard protocol of the cervical spine. COMPARISON: MRI brain and cervical spine 09/26/2018. FINDINGS: BRAIN: No significant interval change is evident regarding the size, shape and number of the multiple small periventricular and subcortical T2/FLAIR hyperintense white matter lesions. No corresponding enhancement or restricted diffusion to suggest active disease is identified. There are stable number of the lesions demonstrating T1 hypointensity, consistent with myelin vacuolization. There is a stable 5 mm dural based right frontal lobe avidly enhancing meningioma (series 16 image 114). No other enhancing lesion is identified. No evidence of acute or chronic hemorrhage is identified. No evidence of acute cerebral infarction or interval infarction is seen. The brain volume is stable without interval atrophy. The ventricles are of normal size, shape, and morphology. No mass, edema, mass effect or midline shift is seen. No other white matter changes are visible. The corpus callosum and sella appear normal. In particular, no callosal or callososeptal demyelinating plaques are present. The posterior fossa and brainstem appear normal. The optic nerves in orbital and prechiasmatic region as well as optic chiasm are normal in size and morphology and there is no associated abnormal enhancement on axial T1 3-D MPRAGE sequence. Mild mucosal thickening of the bilateral ethmoidal air cells anteriorly is in physiologic range. The paranasal sinuses and mastoid air cells are clear. Normal flow voids are demonstrated in the carotid arteries and basilar artery. There is a slightly enlarging 1.6 x 0.9 cm T2 hyperintense lesion which demonstrates enhancement in the midline occipital bone, previously measuring 1.3 x 0.8 cm. CERVICAL SPINE: The small T2 hyperintense focus in the left posterolateral aspect of the spinal cord opposite C3-4 (series 6 image 18) is unchanged and does not enhance. This is not well-seen on the sagittal images. No other focal intramedullary T2 hyperintensity in the cord to indicate a demyelinating plaque is identified. The cord is normal in size and contour and it is not compressed. Alignment is stable and normal. Vertebral bodies are normal in height without evidence of compression fractures. Fat containing osseous hemangiomata of T2 and T3 are stable. The craniocervical junction appears normal. No soft tissue abnormality is identified. Normal flow voids are identified in the vertebral arteries. The moderate degenerative disc disease at the C3-C4 through the C6-C7 levels with associated desiccation of the discs, shortening of disc space heights and endplate osteophytosis has minimally progressed in the interval. Broad-based posterior disc-osteophyte complexes at all of these levels have mildly enlarged in the interval and there is interval formation of an additional superimposed posterior disc protrusion at C4-C5. The ventral subarachnoid space is effaced as a result at these levels, but there is no spinal stenosis. The disc-osteophyte complex at C6-C7 barely abuts the cord without flattening the cord. Moderate to severe uncovertebral joint osteoarthritis at the C3-C4 through the C6-C7 levels is associated with formation of posterior bony spurs from the joints which in association with mild to moderate bilateral facet osteoarthritis at these levels results in moderate to severe bilateral neural foraminal stenosis at C4-C5 and [id number]-[id number] neural foraminal stenosis of the other levels in this segment. No visible impingement on the exiting nerves in the stenotic neural foramina is identified on axial MRI images Procedure Note Abdullahi Baugh MD - 12/11/2020 EXAMINATIONS: 1. MRI BRAIN WITHOUT AND WITH CONTRAST 2. MRI CERVICAL SPINE WITHOUT AND WITH CONTRAST HISTORY: G35: 55-year-old female presenting for multiple sclerosis follow-up. TECHNIQUE: MRI of the brain and cervical spine was performed prior toand following the uneventful administration of 7.5 mL Gadavist contrast according to a demyelination protocol of the brain and a standardprotocol of the cervical spine. COMPARISON: MRI brain and cervical spine 09/26/2018. FINDINGS: BRAIN: No significant interval change is evident regarding the size, shape and number of the multiple small periventricular and subcortical T2/FLAIR hyperintense white matter lesions. No corresponding enhancement or restricted diffusion to suggest active disease is identified. There are stable number of the lesions demonstrating T1 hypointensity, consistent with myelin vacuolization. There is a stable 5 mm dural based right frontal lobe avidly enhancing meningioma (series 16 image 114). No other enhancing lesion isidentified. No evidence of acute or chronic hemorrhage is identified. No evidence of acute cerebral infarction or interval infarction is seen. The brainvolume is stable without interval atrophy. The ventricles are of normal size, shape, and morphology. No mass, edema, mass effect or midline shift is seen. No other white matter changes are visible. The corpus callosum and sella appear normal. In particular, no callosal or callososeptal demyelinating plaques are present. The posterior fossa and brainstem appear normal. The optic nerves in orbital and prechiasmatic region as well as optic chiasm are normal in size and morphology and there is no associated abnormal enhancement on axial T1 3-D MPRAGE sequence. Mild mucosal thickening of the bilateral ethmoidal air cells anteriorlyis in physiologic range. The paranasal sinuses and mastoid air cells are clear. Normal flow voids are demonstrated in the carotid arteries and basilar artery. There is a slightly enlarging 1.6 x 0.9 cm T2 hyperintense lesion which demonstrates enhancement in the midline occipital bone, previously measuring 1.3 x 0.8 cm. CERVICAL SPINE: The small T2 hyperintense focus in the left posterolateral aspect of the spinal cord opposite C3-4 (series 6 image 18) is unchanged and does not enhance. This is not well-seen on the sagittal images. No other focal intramedullary T2 hyperintensity in the cord to indicate a demyelinating plaque is identified. The cord is normal in size and contour and it isnot compressed. Alignment is stable and normal. Vertebral bodies are normal in height without evidence of compression fractures. Fat containing osseous hemangiomata of T2 and T3 are stable. The craniocervical junctionappears normal. No soft tissue abnormality is identified. Normal flow voids are identified in the vertebral arteries. The moderate degenerative disc disease at the C3-C4 through the C6-C7 levels with associated desiccation of the discs, shortening of discspace heights and endplate osteophytosis has minimally progressed in the interval. Broad-based posterior disc-osteophyte complexes at all ofthese levels have mildly enlarged in the interval and there is interval formation of an additional superimposed posterior disc protrusion at C4-C5. The ventral subarachnoid space is effaced as a result at these levels, but there is no spinal stenosis. The disc-osteophyte complex at C6-C7 barely abuts the cord without flattening the cord. Moderate to severe uncovertebral joint osteoarthritis at the C3-H9rldnbab the C6-C7 levels is associated with formation of posterior bony spursfrom the joints which in association with mild to moderate bilateral facet osteoarthritis at these levels results in moderate to severe bilateral neural foraminal stenosis at C4-C5 and kqyl-tr-hybyrkzs neural foraminal stenosis of the other levels in this segment. No visible impingement on the exiting nerves in the stenotic neural foramina is identified onaxial MRI images IMPRESSION: 1. No significant interval changes in size or morphology of the supratentorial and cord demyelinating plaques are identified. A new demyelinating plaque is not evident. No evidence of corresponding enhancement or restricted diffusion to suggest active disease. There has been no interval brain atrophy. The optic nerve and optic chiasm are normal. 2. Stable 5 mm dural-based right frontal meningioma. 3. A 1.6 x 0.9 cm occipital osseous lesion in midline is slightly larger than the prior study. Further evaluation using a CT head for better evaluation of bony structures is recommended. 4. The degenerative disc and joint disease has progressed since09/26/2018 with effacement of ventral subarachnoid space at the C3-C4 through the C6-C7 levels mainly by the posterior disc-osteophyte complexes. However, there is no cord compression or spinal stenosis as a result. I, Dr. ABDULLAHI BAUGH have personally reviewed and interpreted this examination/study. This report was electronically signed by ABDULLAHI BAUGH on 111:41 AM . Noe Valdes MD MR ORDERABLES * CREATININE - POCT INTERFACED (12/09/2020 1:42 PM ROLLER PAINTER) Pathologist [facility] Creatinine POCT 0.78 0.30 - 1.30 mg/dL 12/09/2020 3:12 PM ROLLER PAINTER [facility] eGFR >60 >60 mL/min/1.7 3 m2 12/09/2020 3:12 PM ROLLER PAINTER [facility] Blood BLOOD SPECIMEN / Unknown 12/09/2020 1:42 PM ROLLER PAINTER 12/09/2020 3:12 PM ROLLER PAINTER Noesilas Valdes MD LAB - POINT OF CARE ORDERABLES [id number] [place] [address], [facility] [phone] * LAB RESULTS ORDER (06/06/2020 8:19 AM CDT) Only the most recent of7 resultswithin the time period is included. Narrative 06/06/2020 8:19 AM CDT Ordered by an unspecified provider. Scanned Document LAB - THERAPEUTIC DR SANDOVAL MONITORING ORDERABLES * VITAMIN D 25-HYDROXY (07/17/2019 10:09 AM CDT) Only the most recent of6 resultswithin the time period is included. [facility] Vitamin D, 25 Hydroxy 71 30 - 100 ng/mL [facility] Comment: Vitamin D Status 25-OH Vitamin D: Deficiency: <20 ng/mL Insufficiency: 20 - 29 ng/mL Optimal: > or = 30 ng/mL For 25-OH Vitamin D testing on patients on D2-supplementation and patients for whom quantitation of D2 and D3 fractions is required, the QuestAssureD(TM) 25-OH VIT D, (D2,D3), LC/MS/MS is recommended: order code [id number] (patients >2yrs). For more information on this test, go to: http://education.[employer]point/faq/KSR969 (This link is being provided for informational/educational purposes only.) REPORT COMMENT: FASTING:YES Test Performed at: [facility] [address] [place] [address] LINDSEY DRAKE DO,MPH 07/17/2019 10:0 9 AM CDT 07/17/2019 10:11 AM CDT Adriana Melton APRN-SAMPLING THEORY TEACHER LAB - CHEMISTR Y ORDERABLES [facility] [address] [place] [address] * TSH (07/17/2019 10:09 AM CDT) Only the most recent of6 resultswithin the time period is included. [facility] TSH 1.40 0.40 - 4.50 mIU/L [facility] Comment: Test Performed at: [facility] [address] [place] [address] LINDSEY DRAKE DO,MPH 07/17/2019 10:0 9 AM CDT 07/17/2019 10:11 AM CDT Adriana Melton SENIOR TECHNICAL ARCHITECT-SAMPLING THEORY TEACHER LAB - CHEMISTR Y ORDERABLES [facility] [address] [place] [address] * MRI THORACIC SPINE WWO CONT (09/26/2018 11:13 AM ROLLER PAINTER) Only the most recent of2 resultswithin the time period is included. Anatomical Region Laterality Modality Spine Magnetic Resonan ce 09/28/2018 8:04 AM ROLLER PAINTER Impressions 09/28/2018 11:16 AM ROLLER PAINTER IMPRESSION: 1. Allowing for differences in technique, no significant change in predominantly supratentorial FLAIR hyperintense lesions is identified. No contrast-enhancing lesions are identified to suggest active demyelination. 2. Stable right frontal lobe 5 mm dural based enhancing lesion, likely representing a meningioma. 3. Tiny focus of nonenhancing signal abnormality in the spinal cord at T3-4 level, stable since the prior study. 4. 1.3 x 0.8 cm nonenhancing lesion in the occipital bone which is slightly larger as compared to the prior study. This is nonspecific. Attention on follow-up is recommended. I, Dr. CHARLOTTE ELIZALDE have personally reviewed and interpreted this examination/study. This report was electronically signed by CHARLOTTE ELIZALDE on 09/28/2018 11:16 AM . Narrative 09/28/2018 11:16 AM ROLLER PAINTER EXAMINATION: 1. Magnetic resonance imaging (MRI) of the brain with and without contrast 2. MRI of the cervical and thoracic spine with and without contrast HISTORY: 53-year-old female, multiple sclerosis follow-up TECHNIQUE: MRI of the brain as well as the cervical and thoracic spine was performed with and without contrast according to multiple sclerosis protocol. 6 mL Gadavist was administered intravenously. COMPARISON: MR brain, cervical spine, thoracic spine dated 08/16/2016 FINDINGS: Brain: No evidence of acute or chronic hemorrhage is identified. No evidence of acute cerebral infarction is seen. The ventricles are of normal size, shape, and morphology. No mass effect or midline shift is seen. There are approximately 20 periventricular and subcortical FLAIR hyperintensities, which are unchanged in number and size from the prior examination accounting for difference in technique. Mild FLAIR hyperintensity along the undersurface of the corpus callosum is again seen, without significant change. No enhancing lesions are identified to suggest active demyelination. The small dural-based enhancing lesion along the right frontal lobe (series 11 image 14) measures 5 mm and has not significantly changed in size from the prior examination. This likely represents a meningioma. The sella appears normal. FLAIR hyperintensities in the brainstem are grossly unchanged from the prior examination (series 2 image 20). The imaged portions of the orbits, paranasal sinuses, mastoid air cells demonstrate no acute MR abnormality. Normal flow voids are demonstrated in the internal carotid and basilar arteries. There is a 1.3 x 0.8 cm T2 hyperintense lesion which demonstrates enhancement in the midline occipital bone. This is slightly larger as compared to the prior study (previous measuring 1.2 x 0.5 cm). This is nonspecific and attention is recommended on follow-up for further interval change. Cervical spine: The alignment is normal. Vertebral bodies are normal in height without evidence of compression fractures. Marrow signal intensity is normal. The craniocervical junction appears normal. There is a tiny focus of nonenhancing signal abnormality in the left dorsal lateral aspect of the spinal cord at C3-4 (axial series 5 image 20). This is unchanged to the prior study. Remainder of the cervical spinal cord and cervicomedullary junction are unremarkable. There is no cord compression. There is no epidural fluid collection. No contrast enhancing lesions are identified to suggest active demyelination. There is mild multilevel degenerative disc disease without significant spinal canal or foraminal stenosis as before. Normal flow voids are identified in the vertebral arteries. Thoracic spine: The thoracic vertebral body alignment is normal. Vertebral body heights are normal without evidence of acute fracture or compression deformity. Marrow signal intensity is normal. The spinal cord appears normal and is not significantly changed from the prior examination. No contrast-enhancing lesions are identified suggest active demyelination. The intervertebral discs appear normal. No central canal stenosis is seen. The facets appear normal. No neural foraminal stenosis is seen. No soft tissue abnormality is identified. Procedure Note Charlotte Elizalde MD - 09/28/2018 EXAMINATION: 1. Magnetic resonance imaging (MRI) of the brain with and withoutcontrast 2. MRI of the cervical and thoracic spine with and without contrast HISTORY: 53-year-old female, multiple sclerosis follow-up TECHNIQUE: MRI of the brain as well as the cervical and thoracic spinewas performed with and without contrast according to multiple sclerosis protocol. 6 mL Gadavist was administered intravenously. COMPARISON: MR brain, cervical spine, thoracic spine dated 08/16/2016 FINDINGS: Brain: No evidence of acute or chronic hemorrhage is identified. No evidence of acute cerebral infarction is seen. The ventricles are of normal size, shape, and morphology. No mass effect or midline shift is seen. Thereare approximately 20 periventricular and subcortical FLAIR hyperintensities, which are unchanged in number and size from the prior examination accounting for difference in technique. Mild FLAIR hyperintensity along the undersurface of the corpus callosum is again seen, withoutsignificant change. No enhancing lesions are identified to suggest active demyelination. The small dural-based enhancing lesion along the right frontal lobe (series 11 image 14) measures 5 mm and has notsignificantly changed in size from the prior examination. This likely represents a meningioma. The sella appears normal. FLAIR hyperintensities in the brainstem are grossly unchanged from the prior examination (series 2image 20). The imaged portions of the orbits, paranasal sinuses, mastoid air cells demonstrate no acute MR abnormality. Normal flow voids are demonstratedin the internal carotid and basilar arteries. There is a 1.3 x 0.8 cm T2 hyperintense lesion which demonstrates enhancement in the midline occipital bone. This is slightly larger as compared to the prior study (previous measuring 1.2 x 0.5 cm). This is nonspecific and attention is recommended on follow-up for furtherinterval change. Cervical spine: The alignment is normal. Vertebral bodies are normal in height without evidence of compression fractures. Marrow signal intensity is normal.The craniocervical junction appears normal. There is a tiny focus of nonenhancing signal abnormality in the left dorsal lateral aspect of the spinal cord at C3-4 (axial series 5 image 20). This is unchanged to the prior study. Remainder of the cervical spinal cord and cervicomedullary junction are unremarkable. There is no cord compression. There is no epidural fluid collection. No contrast enhancing lesions are identifiedto suggest active demyelination. There is mild multilevel degenerative disc disease without significant spinal canal or foraminal stenosis as before. Normal flow voids are identified in the vertebral arteries. Thoracic spine: The thoracic vertebral body alignment is normal. Vertebral body heights are normal without evidence of acute fracture or compression deformity. Marrow signal intensity is normal. The spinal cord appears normal and is not significantly changed from the prior examination. No contrast-enhancing lesions are identified suggest active demyelination. The intervertebral discs appear normal. No central canal stenosis isseen. The facets appear normal. No neural foraminal stenosis is seen. No soft tissue abnormality is identified. IMPRESSION: 1. Allowing for differences in technique, no significant change in predominantly supratentorial FLAIR hyperintense lesions is identified.No contrast-enhancing lesions are identified to suggest activedemyelination. 2. Stable right frontal lobe 5 mm dural based enhancing lesion, likely representing a meningioma. 3. Tiny focus of nonenhancing signal abnormality in the spinal cord at T3-4 level, stable since the prior study. 4. 1.3 x 0.8 cm nonenhancing lesion in the occipital bone which is slightly larger as compared to the prior study. This is nonspecific. Attention on follow-up is recommended. I, Dr. CHARLOTTE ELIZALDE have personally reviewed and interpreted this examination/study. This report was electronically signed by CHARLOTTE ELIZALDE on 09/28/201811:16 AM . Adriana HARRIS MR ORDERABLES * CREATININE BLOOD - POCT (IP) [facility] (09/26/2018 9:23 AM ROLLER PAINTER) Only the most recent of3 resultswithin the time period is included. Creatinine POCT 0.83 0.3 - 1.3 mg/dL [facility] eGFR POCT 60 60 ml/min [facility] Blood BLOOD SPECIMEN / Unknown 09/26/2018 9:23 AM ROLLER PAINTER Adriana Melton APRN-SAMPLING THEORY TEACHER LAB - POINT OF CARE ORDERABLES [facility] [address] [phone] * HEPATIC FUNCTION PANEL (06/27/2017 3:53 PM CDT) Only the most recent of5 resultswithin the time period is included. Pathologist [facility] Protein Total 6.6 6.4 - 8.4 g/dL [facility] ([facility]) Albumin 4.2 3.6 - 5.1 g/dL [facility] ([facility]) Globulin 2.4 2.2 - 4.0 g/dL (calc) [facility] ([facility]) Albumin/Globulin Ratio 1.8 0.9 - 2.3 (calc) [facility] ([facility]) Bilirubin Total 0.5 0.2 - 1.2 mg/dL [facility] ([facility]) Bilirubin Direct 0.1 < OR = 0.2 mg/dL [facility] ([facility]) Bilirubin Indirect 0.4 0.2 - 1.2 mg/dL (calc) [facility] ([facility]) Alkaline Phosphatase 79 33 - 130 U/L [facility] ([facility]) AST 26 10 - 35 U/L [facility] ([facility]) ALT 21 6 - 29 U/L [facility] ([facility]) Comment: Test Performed at: [facility] [address] [place] [address] LINDSEY DRAKE DO,MPH 06/27/2017 3:5 3 PM CDT 06/27/2017 3:53 PM CDT Romel Julian MD LAB - CHEMISTRY ORDERABLES [facility] ([facility]) * (ABNORMAL) BASIC METABOLIC PANEL (CALCIUM TOTAL) (08/02/2016 10:32 AM CDT) [facility] Glucose 112(H) 65 - 99 mg/dL [facility] ([facility]) Comment: Fasting reference interval BUN 15 7 - 25 mg/dL [facility] ([facility]) Creatinine 0.93 0.50 - 1.05 mg/dL [facility] ([facility]) Comment: For patients >49 years of age, the reference limit for Creatinine is approximately 13% higher for people identified as -Portuguese. BUN/Creatinine Ratio NOT APPLICABLE 6 - 22 (calc) [facility] ([facility]) Sodium 138 135 - 146 mmol/L [facility] ([facility]) Potassium 4.1 3.5 - 5.3 mmol/L [facility] ([facility]) Chloride 108 98 - 110 mmol/L [facility] ([facility]) CO2 27 20 - 31 mmol/L [facility] ([facility]) Calcium 9.7 8.6 - 10.4 mg/dL [facility] ([facility]) Comment: Test Performed at: [facility] [address] [place] [address] LINDSEY DRAKE DO,MPH Blood specimen (specimen) BLOOD SPECIMEN / Unknown 08/02/2016 10:32 AM CDT 08/02/2016 10:33 AM CDT Romel Julian MD LAB - CHEMISTRY ORDERABLES [facility] ([facility]) * QUANTIFERON TB-GOLD INC (12/28/2015 4:01 PM CDT) QuantiFERON TB Gold Negative Negative [facility] (BEAKER) Comment: The specimen received for QuantiFERON testing was incubated by the ordering institution. Specific procedures outlined in our Directory of Services and in the package insert for the QuantiFERON Gold (In Tube) test must be followed to enable for proper stimulation of cells for the production of interferon gamma. QuantiFERON Criteria Comment [facility] (BEAKER) Comment: To be considered positive a specimen should have a TB Ag minus Nil value greater than or equal to 0.35 IU/mL and in addition the TB Ag minus Nil value must be greater than or equal to 25% of the Nil value. There may be insufficient information in these values to differentiate between some negative and some indeterminate test values. QuantiFERON TB Antigen Value 0.07 IU/mL [facility] (BEAKER) QuantiFERON Nil Value 0.07 IU/mL [facility] (BEAKER) QuantiFERON Mitogen Value 8.06 IU/mL [facility] (BEAKER) QFT TB Ag minus Nil Value 0.00 IU/mL [facility] (BEAKER) Interpretation Comment [facility] Comment: The QuantiFERON TB Gold (in Tube) assay is intended for use as an aid in the diagnosis of TB infection. Negative results suggest that there is no TB infection. In patients with high suspicion of exposure, a negative test should be repeated. A positive test indicates infection with Mycobacterium tuberculosis. Among individuals without tuberculosis infection, a positive test may be due to exposure to M. kansasii, M. szulgai or M. marinum. On the Internet, go to cdc.gov/tb for further details. Blood specimen (specimen) BLOOD SPECIMEN / Unknown 12/28/2015 4:01 PM CDT 12/28/2015 4:28 PM CDT Narrative [facility] ([facility]) - 12/31/2015 6:41 AM CDT Performed at: [facility] [id number] A Operator: Mor Velázquez PhD, Phone: [phone] Historical Provider LAB - SEROLOGY OR DERABLES Performing Organization Address City/[facility]/ZIP Co de Phone Number [facility] ([facility]) * FOLATE (05/10/2015 10:25 AM CDT) Only the most recent of2 resultswithin the time period is included. Folate 10.0 7.0 - 31.4 ng/mL [facility] Blood specimen (specimen) BLOOD SPECIMEN / Unknown 05/10/2015 10:25 AM CDT 05/10/2015 10:29 AM CDT Historical Provider LAB - CHEMISTRY O RDERABLES Performing Organization Address [facility] Co de Phone Number [address] [phone] * VITAMIN B12 (05/10/2015 10:25 AM CDT) Only the most recent of2 resultswithin the time period is included. Vitamin B12 407 213 - 816 pg/mL [facility] Blood specimen (specimen) BLOOD SPECIMEN / Unknown 05/10/2015 10:25 AM CDT 05/10/2015 10:29 AM CDT Historical Provider LAB - CHEMISTRY O RDERABLES Performing Organization Address City/[facility]/[place]IP [place] [address], [place] [phone] * PTT [facility] (05/18/2014 12:59 PM CDT) Pathologist [facility] APTT 28 22 - 34 sec [facility] ([facility]) Comment: The therapeutic range for unfractionated heparin therapy is 1.5-2.5 times the mean of the reference interval. In patients in whom there is an apparent heparin resistance, a heparin level by an anti-Xa method is available. Test Performed at: [facility] [place] [address] LINDSEY DRAKE DO,MPH 05/18/2014 12:5 9 PM CDT 05/18/2014 1:00 PM CDT Historical Provider LAB - COAGULATION ORDERABLES Performing Organization Address [facility] de Phone Number [facility] ([facility]) * PT-INR [facility] (05/18/2014 12:59 PM CDT) [facility] [facility] INR 0.9 [facility] ([facility]) Comment: Reference Range 0.9-1.1 Moderate-intensity Warfarin Therapy 2.0-3.0 Higher-intensity Warfarin Therapy 3.0-4.0 PT 10.1 9.0 - 11.5 sec [facility] ([facility]) Comment: For more information on this test, go to: [email or web address]/[email or web address] Test Performed at: [facility] [address] [place] [phone] LINDSEY DRAKE DO,MPH 05/18/2014 12:5 9 PM CDT 05/18/2014 1:00 PM CDT Historical Provider LAB - COAGULATION ORDERABLES Performing Organization Address [facility] de Phone Number [facility] ([facility]) * VITAMIN D 25-HYDROXY D2+D3 BY TANDEM MASS (05/18/2014 12:59 PM CDT) Only the most recent of3 resultswithin the time period is included. Pathologist [facility] Vitamin D, 25 Hydroxy Total 56 30 - 100 ng/mL [facility] ([facility]) Comment: 25-OHD3 indicates both endogenous production and supplementation. 25-OHD2 is an indicator of exogenous sources, such as diet or supplementation. Therapy is based on measurement of Total 25-OHD, with levels <20 ng/mL indicative of Vitamin D deficiency, while levels between 20 ng/mL and 30 ng/mL suggest insufficiency. Optimal levels are > or = 30 ng/mL. Vitamin D, 25 Hydroxy D3 56 See Below ng/mL [facility] ([facility]) Comment:Reference Range: Not established Vitamin D, 25 Hydroxy D2 <4 See Below ng/mL [facility] ([facility]) Comment: Reference Range: Not established Test Performed at: [facility] [address] [place] [address] GALINA RODRIGEZ MD,FCAP 05/18/2014 12:5 9 PM CDT 05/18/2014 1:00 PM CDT Historical Provider LAB - CHEMISTRY O RDERABLES [facility] ([facility]) * URINALYSIS W/MICROSCOPIC NO CULTURE (05/18/2014 12:59 PM CDT) Color UA YELLOW YELLOW [facility] ([facility]) Appearance CLEAR CLEAR [facility] ([facility]) Specific Lead UA 1.011 1.001 - 1.035 [facility] ([facility]) pH Urine 6.5 5.0 - 8.0 [facility] ([facility]) Glucose UA NEGATIVE NEGATIVE [facility]) Bilirubin UA NEGATIVE NEGATIVE [facility]) Ketone UA NEGATIVE NEGATIVE [facility]) Occult Blood NEGATIVE NEGATIVE [facility]) Protein UA NEGATIVE NEGATIVE [facility]) Nitrite UA NEGATIVE NEGATIVE [facility]) Leukocyte Esterase NEGATIVE NEGATIVE [facility] ([facility]) WBC Urine NONE SEEN < OR = 5 /HPF [facility]) RBC Urine NONE SEEN < OR = 3 /HPF [facility]) Squamous Epithelial Cells UA NONE SEEN < OR = 5 /HPF [facility]) Bacteria UA NONE SEEN NONE SEEN /HPF [facility]) Hyaline Casts UA NONE SEEN NONE SEEN /LPF [facility] ([facility]) Comment: Test Performed at: [facility] [address] [place] [address] LINDSEY DRAKE DO,MPH 05/18/2014 12:5 9 PM CDT 05/18/2014 1:00 PM CDT Historical Provider LAB - URINALYSIS ORDERABLES [facility]) * T4 FREE (05/18/2014 12:59 PM CDT) T4 Free 1.2 0.8 - 1.8 ng/dL [facility] ([facility]) Comment: Test Performed at: [facility] [address] [place] [address] LINDSEY DRAKE DO,MPH 05/18/2014 12:5 9 PM CDT 05/18/2014 1:00 PM CDT Historical Provider LAB - CHEMISTRY O RDERABLES Performing Organization Address City/[facility]/ZIP Co de Phone Number [facility] ([facility]) * QUANTIFERON TB-GOLD (08/11/2013 12:50 PM ROLLER PAINTER) Only the most recent of2 resultswithin the time period is included. QuantiFERON TB Gold Negative Negative [facility] QuantiFERON Positive Criteria . [facility] Comment: To be considered positive a specimen should have a TB Ag minus Nil value greater than or equal to 0.35 IU/mL and in addition the TB Ag minus Nil value must be greater than or equal to 25% of the Nil value. There may be insufficient information in these values to differentiate between some negative and some indeterminate test values. QuantiFERON TB Antigen 0.05 . IU/mL [facility] QuantiFERON Nil Value 0.05 . IU/mL [facility] QuantiFERON Mitogen Value >10.00 . IU/mL [facility] QuantiFERON TB Antigen minus Nil value 0.00 . IU/mL [facility] Interpretation QuantiFERON . [facility] Comment: The QuantiFERON TB Gold (in Tube) assay is intended for use as an aid in the diagnosis of TB infection. Negative results suggest that there is no TB infection. In patients with high suspicion of exposure, a negative test should be repeated. A positive test indicates infection with Mycobacterium tuberculosis. Among individuals without tuberculosis infection, a positive test may be due to exposure to M. kansasii, M. szulgai or M. marinum. On the Internet, go to cdc.gov/tb for further details. The specimen received for QuantiFERON testing was incubated by the ordering institution. Specific procedures outlined in our Directory of Services and in the package insert for the QuantiFERON Gold (In Tube) test must be followed to enable for proper stimulation of cells for the production of interferon gamma. Performed at: [facility] [address] [id number] A Operator: Robert Chong MD, Phone: [phone] 08/11/2013 12:5 0 PM ROLLER PAINTER 08/11/2013 1:50 PM ROLLER PAINTER Historical Provider LAB - CHEMISTRY O RDERABLES Performing Organization Address [facility]/ZIP Co de Phone Number [address] [phone] * STRATIFY JCV AB RFLX TO INHIBITION ASSAY (06/30/2013 10:24 AM CDT) [facility] ANGY Polyoma Virus Antibody POSITIVE [facility] ([facility]) Comment: INTERPRETATION Indeterminate: Low level reactivity detected, see Inhibition Assay result to follow for the final antibody result. Positive: Antibodies to ANGY virus (JCV) detected indicating the patient has been exposed to JCV at an undetermined time. Negative: Antibodies to JCV not detected. The STRATIFY JCV Antibody Test is an enzyme-linked immunosorbent assay (SHAD) designed to detect JCV antibodies to help identify individuals who have been exposed to the virus. Samples with low level reactivity in the detection assay are retested in a confirmation (inhibition) assay to confirm presence or absence of JCV-specific antibodies. Test Performed at: [facility] [address] [place] [phone] CHERI HUNTER MD,PHD 06/30/2013 10:2 4 AM CDT 06/30/2013 10:25 AM CDT Historical Provider LAB - SEROLOGY OR DERABLES Performing Organization Address City/[facility]/ZIP Co de Phone Number [facility]) * TOMI SCREEN IFA+LUPUS PANEL (06/30/2013 10:24 AM CDT) TOMI Screen NEGATIVE NEGATIVE [facility] ([facility]) Comment: INTERPRETATION A negative TOMI, IFA indicates that numerous analytes associated with connective tissue disease, including lupus erythematosus, are negative. Test Performed at: [facility] [place] [address] [place] [address] LINDSEY DRAKE DO,MPH 06/30/2013 10:2 4 AM CDT 06/30/2013 10:25 AM CDT Archie Provider LAB - SEROLOGY OR DERABLES Performing Organization Address [facility] de Phone Number [facility]) * INTERFERON BETA NEUTRALIZING ANTIBODY (06/30/2013 10:24 AM CDT) IFNB 1b Antibody <1:20 [facility] ([facility]) Interpretation IFNB 1B neutralizing Antibody NEGATIVE [facility] ([facility]) Comment: REFERENCE RANGE: <1:20 INTERPRETIVE CRITERIA: <1:20 Negative > or = 1:20 - <1:100 Elevated NAbs > or = 1:100 Highly Elevated NAbs Highly elevated NAbs (>=1:100) have been reported to correlate with predictable loss of interferon-beta bioactivity. In patients with elevated NAb levels from >=1:20 to <1:100, interferon-beta bioactivity may still be present, but does not correlate to the exact NAb titer and continued patient monitoring may be warranted. There is no apparent loss of interferon-beta bioactivity in patients who test positive in the binding antibody assay, but negative for NAbs; however, continued patient monitoring may also be warranted in this instance as well. Test Performed at: [facility] [place] [address] [place] [phone] CHERI HUNTER MD,PHD 06/30/2013 10:2 4 AM CDT 06/30/2013 10:25 AM CDT Frank Sterling MD LAB - CHEMISTRY STU JONES Performing Organization Address City/[facility] Co de Phone Number [facility]) * NEUROMYELITIS OPTICA ANTIBODY (06/30/2013 10:24 AM CDT) [facility] Interpretation NEGATIVE This individual does not possess abnormally elevated levels of NMO-specific [facility] ([facility]) Interpretation lynnereece alemanLubna [facility]) NMO Antibody IgG 0 U/ml [facility]) Reference Table NMO NMO antibody Reference Range (U/ml) ------- [facility]) Reference Table NMO Negative Borderline Positive ------- <3 3-5 >5 [facility]) Reference Table NMO ------- [facility]) Comment [facility]) Comment: This analysis did not detect NMO-specific autoantibodies. However seronegativity does not necessarily preclude a diagnosis of neuromyelitis optica (NMO), or Devic syndrome. Neuromyelitis optica (NMO)-specific autoantibodies are also found in patients with relapsing optic neuritis (Rajendra) [1], or longitudinally extensive transverse myelitis (LETM) without optic neuritis which is thought to be a precursor to NMO in some cases [2]. The main target antigen for this immunoreactivity has been identified as aquaporin-4 (AQP4) [3]. An antibody-mediated pathogenesis for NMO is supported by several observations, including the characteristics of the AQP4 antibodies, the distinct NMO pathology (including IgG and complement deposition, and loss of AQP4 from spinal cord lesions) [2]. However, many aspects of the pathogenesis remain unclear [2]. Although Neuromyelitis Optica (NMO or Devic syndrome) has been classified as a subtype of multiple sclerosis for many years, the disease is classically restricted to the optic nerves and spinal cord, and it is now clear that it has distinct clinical and pathological features [2]. The average age of onset for NMO is 34.5 years, with a range of 4-66 yrs of age [4]. In populations, females develop the disease three times more frequently than males (3:1 ratio), and in one report, 22% of cases had a severe residual visual loss after the first episode of optic neuritis [4]. Method [facility] ([facility]) Comment: Detection of NMO-specific autoantibodies was performed by SHAD using free biotinylated Aquaporin-4 (AQP4), and plates that were coated with purified AQP4. Compared to the results of a cell-based assay designed to detect NMO-autoantibodies, the sensitivity and specificity of this SHAD test has been calculated as 73% and greater than 99%, respectively. Reference [facility] ([facility]) Comment: 1. Brendan S, et al. [facility] Rev Neurol. (2010) 6:383-392. 2. Brendan Aleman et al. [facility] Clin Pract Neurol. (2008) 4:202-214. 3. Jose REYES, et al. J Exp Med (2005) 202:473-477. 4. Felix N, et al. Neurology (2010) 74:736-742. This test was developed and its performance characteristics have been determined by [facility]. Performance characteristics refer to the analytical performance of the test. Laboratory oversight provided by Chao Damon M.D., F.A.A.N., CLIA license ba, [facility] (CLIA # [id number]) REPORT COMMENT: SPECIALIZED COLLECTION. PATIENT REFERRED TO ALTERNATE SITE. Test Performed at: [facility] [address] [place] [address] CHANTE HECK,PHD,[facility] 06/30/2013 10:2 4 AM CDT 06/30/2013 10:25 AM CDT Historical Provider MD LAB - SEROLOGY OR DERABLES [facility] ([facility]) * RPR W REFLEX CONFIRM (06/30/2013 10:24 AM CDT) RPR NON-REACTI VE NON-REACT LÁZARO [facility] ([facility]) Comment: Test Performed at: [facility] [place] [address] [address] LINSDEY DRAKE DO,MPH 06/30/2013 10:2 4 AM CDT 06/30/2013 11:10 AM CDT Historical Provider LAB - CHEMISTRY O KAYLEIGH Performing Organization Address [facility] de Phone Number [facility]) * VARICELLA ZOSTER ANTIBODY IGG (06/30/2013 10:24 AM CDT) Pathologist [facility] Varicella zoster Virus Antibody IgG 1.56 index [facility] ([facility]) Comment: Index Explanation of Results --------- < or = 0.90 Negative - No VZV IgG Antibody detected 0.91 - 1.09 Equivocal > or = 1.10 Positive - VZV IgG Antibody detected A positive result indicates that the patient has antibody to VZV but does not differentiate between infection (active or past) and vaccination. The clinical diagnosis must be interpreted in conjunction with the clinical signs and symptoms of the patient. This assay reliably measures immunity due to previous infection but may not always be sensitive enough to detect antibodies induced by vaccination. Thus, a negative result in a vaccinated individual does not necessarily indicate susceptibility to VZV infection. Test Performed at: [facility] [address] [place] [address] LINDSEY DRAKE DO,MPH 06/30/2013 10:2 4 AM CDT 06/30/2013 10:25 AM CDT Historical Provider LAB - CHEMISTRY O KAYLEIGH Performing Organization Address [facility] de Phone Number [facility]) * HEPATITIS C ANTIBODY (06/30/2013 10:24 AM CDT) Pathologist [facility] Hepatitis C Antibody NON-REACTI VE NON-REACT LÁZARO [facility]) Signal/Cutoff 0.03 <1.00 [facility]) Comment: Test Performed at: [facility] [address] [place] [address] LINDSEY DRAKE DO,MPH 06/30/2013 10:2 4 AM CDT 06/30/2013 10:25 AM CDT Historical Provider LAB - CHEMISTRY O RDERABLES [facility]) Care Teams Delivery Person Relationship Specialty Start Date End Date Mark Alcantara MD [address] [place] [address] PCP - General 11/19/21
--- OUTSIDE RECORDS SUMMARY | 2024-11-15 01:10 | XMS_ITS | Clinical Summary ---
Author Organization [facility] [email or web address] Address [address] [place] [address] Care Team Providers Care Business Intelligence Etl Developer Name Role Phone Mark Alcantara MD Primary Care Provider [phone] Source Comments [facility],non-owned Affiliates and Associated Physician Practices is amultiple site organization consisting of ambulatory clinics and hospital sitesin [place], [place], [place]. This disclosure is being madepursuant to the Care Everywhere program and may not contain all information available regarding this patient. Last updated 18.[facility] [email or web address] Allergies No known active allergies Medications * [...] Administration Dates Next Due INFLUENZA VACCINE 07/05/2019,07/07/2018 Family History Medical History Relation Name Comments Dementia Father Heart Disease Father Alzheimer's Disease Mother Relation Name Status Comments Father Mother Social History Tobacco Use Types Packs/Day Years [...] Comments Blood Pressure 126/85 09/04/2023 2:47 PM [employer]CI[employer] DEVELOPER Pulse 84 09/04/2023 2:47 PM [employer]LE [employer] DEVELOPER Temperature 36.6 C (97.8 F) 09/04/2023 2:47 PM [employer]ACLE FIN[employer]CI[employer] DEVELOPER Respiratory Rate 16 11/04/2016 2:55 PM [employer]CI[employer] DEVELOPER Oxygen Saturation 96% 09/04/2023 2:47 PM [employer]ACLE FIN[employer]CI[employer] DEVELOPER Inhaled Oxygen Concentration - - Weight 67.1 kg (148 lb) 09/04/2023 2:47 PM [employer]LE [employer]CI[employer] DEVELOPER Height 167.6 cm (5' 6 ) 09/04/2023 2:47 PM [employer]ACLE [employer]CI[employer] DEVELOPER Body Mass Index 23.89 09/04/2023 2:47 PM [employer]ACLE [employer]CI[employer] DEVELOPER Plan of Treatment Health Maintenance Due Date Last Done Comments COLOGUARD (AGES 45-75) - COL ON CA SCREENING 1963 COLON MONITORING 1963 COLONOSCOPY - COLON CA SCREENING 1963 CT COLONOGRAPHY - COLON CA SCREENING 1963 Colorectal Cancer Screening 1963 FIT - COLON CA SCREENING 1963 FLEX SIG - COLON CA SCREENING 1963 LIPID TESTING 1963 MAMMOGRAM 1963 PAP SMEAR 1963 HIV SCREENING 1978 DTAP/TDAP/TD VACCINES (1 - Tdap) 1982 PNEUMOCOCCAL VACCINE 50+ (1 of 1 - PCV) 2013 ZOSTER VACCINE (1 of 2) 2013 COVID-19 VACCINE (2023-2 5 season) 2024 INFLUENZA VACCINE (#1) 2024 , 07/07/2018 DEPRESSION SCREENING 09/29/2024 Respiratory Syncytial Virus (RSV) Vaccine Pt: or over 60 yrs (1 - 1-dose 75+ series) 2038 HEPATITIS C SCREENING Completed 06/30/2013 HEPATITIS B VACCINE Aged Out No longe r eligible based on patient's age to complete this topic HIB VACCINE Aged Out No longer eligi ble based on patient's age to complete this topic HPV VACCINE Aged Out No longer eligi ble based on patient's age to complete this topic MENINGOCOCCAL (Group B) VACCINE Aged Out No longer eligible b ased on patient's age to complete this topic MENINGOCOCCAL VACCINE Aged Out No nia kacey eligible based on patient's age to complete this topic PNEUMOCOCCAL VACCINE Aged Out No long er eligible based on patient's age to complete this topic Procedures Procedure Name Priority Date/Time Associated Diagnosis Comments HEPATITIS C ANTIBODY Routine 06/30/2013 10:24 AM CDT from Last 3 Months or Most Recently Relevant to Health Maintenance Results * HEPATITIS C ANTIBODY (06/30/2013 10:24 AM CDT) Hepatitis C Antibody NON-REACTI VE NON-REACT LÁZARO [facility]) Signal/Cutoff 0.03 <1.00 [facility]) Comment: Test Performed at: [facility] [address] [place] [address] LINDSEY DRAKE DO,MPH 06/30/2013 10:2 4 AM CDT 06/30/2013 10:25 AM CDT Historical Provider LAB - CHEMISTRY O RDERABLES [facility]) from Last 3 Months or Most Recently Relevant to Health Maintenance Care Teams Business Intelligence Etl Developer Relationship Specialty Start Date End Date Mark Alcantara MD [address] [place], [place] [id number] PCP - General 11/19/21
--- OUTSIDE RECORDS SUMMARY | 2024-11-15 01:10 | XMS_ITS | Referral Summary ---
Author Organization [facility] Address [address] [place] [address] Care Team Providers Care Library Page Name Role Phone Mark Alcantara MD Primary [...] 8:14 PM CDT): Patient is presenting to [facility] for her multiple sclerosis. She had [...] with a brain MRI for further evaluation. 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
[2024-11-15 11:25] VITALS: BP 123/81; PULSE 101; RESP 16; TEMP 35.6; O2SAT 100; BMI 24.5
[2024-11-15] MEDS: LACTATED RINGERS 1,000 ML 150 ML IV CONT (11:43)
--- NOTE | 2024-11-15 12:13 | WPDANESEPPF ---
Anes - Initial Pre Proc Eval Procedure: Operation Date: 11/15/24 12:30 Proposed Procedures p Screening Colonoscopy - Ronnie Mcgregor MD Date/Time: 11/15/24 12:13 Surgeon: Ronnie Mcgregor MD Pre Op Diagnosis: screening for malignant neoplasm colon,rectum Patient Data Age: 59 Gender: F Height: 1.68 m Weight: 68.9 kg Last Vital Signs Temp 35.6 C L 11/15/24 11:25 Pulse 101 H 11/15/24 11:25 Resp 16 11/15/24 11:25 BP 123/81 11/15/24 11:25 Pulse Ox 100 11/15/24 11:25 O2 Del Method Room Air 11/15/24 11:25 Allergies Allergy/AdvReac Type Severity Reaction Status Date / Time No Known Allergies Allergy Verified 11/15/24 11:30 Home Medications ?Medication ?Instructions ?Recorded ?Confirmed ?Type teriflunomide 14 mg tablet 14 mg PO DAILY 04/23/21 11/15/24 History (Aubagio) cholecalciferol (vitamin D3) 125 125 mcg PO DAILY 09/02/22 11/15/24 History mcg (5,000 unit) tablet (Vitamin D3) multivitamin 1 tablet PO DAILY 09/02/22 11/15/24 History progesterone micronized 200 mg 200 mg PO QHS 06/16/23 11/15/24 History capsule estradiol 0.25 mg/0.25 gram (0.1 1 packet transdermal DAILY 08/07/23 11/15/24 History %) transdermal gel packet liothyronine 25 mcg tablet 20 mcg PO DAILY 08/06/24 11/15/24 History mecobalamin (vitamin B12) 1,000 1,000 mcg PO DAILY 10/29/24 11/15/24 History mcg chewable tablet (B12 Active) tirzepatide 15 mg/0.5 mL 15 mg subcut WEEKLY 10/29/24 11/15/24 History subcutaneous pen injector (Mounjaro) Patient hx anesthesia problems: none Family hx anesthesia problems: none Results Review: All pre-operative results and documents have been reviewed as part of the pre-operative evaluation. [facility] Past Medical History Medical History Smoker Screening mammogram, encounter for Bilateral tinnitus Multiple sclerosis Surgical History Surgical History History of tonsillectomy and adenoidectomy History of cholecystectomy History of delivery Family History Family History Mother Carcinoma of colon Alzheimer disease Sibling Malignant neoplasm of prostate Social History Social History Social History: Years smoked: 2 Smoking status: Former smoker Tobacco type: cigarettes Second hand tobacco smoke exposure: Yes Smoking end date: 11/26/21 Alcohol intake: current Drinks per week: 2 Substance use: never Substance use type: does not use Living arrangements: with family Additional living arrangements comments: boyfriend Occupation/Education: occupation Gender identity (if verbalized by the patient): Female Sexual Orientation (if Verbalized by the Patient): Straight or Heterosexual Spiritual care concerns: No Anes - Eval Final PreProcedure Day of Procedure 11/15/24 12:13 Patient weight: normal Heart: regular rate and rhythm Lungs: clear to auscultation and normal air movement Airway: Mallampati scale class II Neurological: alert and oriented Last oral intake: >/= 8 hours ASA classification: III Emergent: no Anesthetic plan: proceed Anesthesia type and monitoring: general GIVS and standard monitoring Results Review: All pre-operative results and documents have been reviewed as part of the pre-operative evaluation. Informed Consent: The patient's anesthetic plan and its attendant risks and benefits were discussed with the patient/family/POA. Questions were solicited and answers provided to the satisfaction of the patient/family/POA.
--- NOTE | 2024-11-15 12:53 | PM.IMHP ---
H&P: HPI History of Present Illness Date/Time: 11/15/24 12:53 Chief Complaint: Family history colon cancer Narrative: This patient has family history of colorectal cancer. her mother had colorectal cancer at age 70. Review of Systems Review of Systems: All systems reviewed & are unremarkable except as noted in HPI and below PMFSH Past Medical History Medical History Smoker Screening mammogram, encounter for Bilateral tinnitus Multiple sclerosis Surgical History Surgical History History of tonsillectomy and adenoidectomy History of cholecystectomy History of delivery Family History Family History Mother Carcinoma of colon Alzheimer disease Sibling Malignant neoplasm of prostate Social History Social History Social History: Years smoked: 2 Smoking status: Former smoker Tobacco type: cigarettes Second hand tobacco smoke exposure: Yes Smoking end date: 11/26/21 Alcohol intake: current Drinks per week: 2 Substance use: never Substance use type: does not use Living arrangements: with family Additional living arrangements comments: boyfriend Occupation/Education: occupation Gender identity (if verbalized by the patient): Female Sexual Orientation (if Verbalized by the Patient): Straight or Heterosexual Spiritual care concerns: No Meds Home Medications and Allergies Home Medications ?Medication ?Instructions ?Recorded ?Confirmed ?Type teriflunomide 14 mg tablet 14 mg PO DAILY 04/23/21 11/15/24 History (Aubagio) cholecalciferol (vitamin D3) 125 125 mcg PO DAILY 09/02/22 11/15/24 History mcg (5,000 unit) tablet (Vitamin D3) multivitamin 1 tablet PO DAILY 09/02/22 11/15/24 History progesterone micronized 200 mg 200 mg PO QHS 06/16/23 11/15/24 History capsule estradiol 0.25 mg/0.25 gram (0.1 1 packet transdermal DAILY 08/07/23 11/15/24 History %) transdermal gel packet liothyronine 25 mcg tablet 20 mcg PO DAILY 08/06/24 11/15/24 History mecobalamin (vitamin B12) 1,000 1,000 mcg PO DAILY 10/29/24 11/15/24 History mcg chewable tablet (B12 Active) tirzepatide 15 mg/0.5 mL 15 mg subcut WEEKLY 10/29/24 11/15/24 History subcutaneous pen injector (Mounjaro) Allergies Allergy/AdvReac Type Severity Reaction Status Date / Time No Known Allergies Allergy Verified 11/15/24 11:30 Vital Signs Vital Signs - 24 hr 11/15/24 11:25 Temperature 96.1 F L Pulse Rate 101 H Respiratory Rate 16 Blood Pressure 123/81 Pulse Oximetry 100 Oxygen Delivery Room Air Exam Const: General: cooperative and healthy appearing Resp: Effort & Inspection: normal respiratory effort and able to speak in complete sentences Auscultation: clear to auscultation bilaterally Cardio: Rate: regular rate Rhythm: regular rhythm GI: Inspection: normal to inspection GI Palp: No No hepatosplenomegaly present Auscultation: normal bowel sounds Rectal Exam: deferred Skin: General skin exam: normal color Psych: Appearance: grossly normal Mental Status: mental status grossly normal Assessment and Plan Assessment and plan (1) Family history of colorectal cancer: Code(s): Z80.0 - Family history of malignant neoplasm of digestive organs Status: Acute Assessment and Plan: The patient is deemed a good candidate for the procedure. Consent signed. Will proceed.
[2024-11-15 13:14] VITALS: BP 122/80; PULSE 74; RESP 18; O2SAT 97
[2024-11-15 13:24] VITALS: BP 111/75; PULSE 75; RESP 16; O2SAT 100
[2024-11-15 13:34] VITALS: BP 113/82; PULSE 77; RESP 21; O2SAT 100
== END 2024-11-15 13:50 | disposition home or self-care (01) ==
PROVIDERS: PCP Family Medicine; Referring Provider Physician Assistant Medical; Visit Provider Internal Medicine Gastroenterology
PROC: 0DJD8ZZ Inspection of Lower Intestinal Tract, Via Natural or Artificial Opening Endoscopic (ICD-10-PCS; CPT 45378; principal; 2024-11-15 12:30)
DX: Z12.11 Encounter for screening for malignant neoplasm of colon (principal); Z80.0 Family history of malignant neoplasm of digestive organs; Z87.891 Personal history of nicotine dependence
CPT/HCPCS: 45378; J2003; J2704; J7120